=== PATIENT | male | born 1960 | race Caucasian/White ===

== ENCOUNTER 2016-07-30 01:39 | Emergency (ER) | payer MEDICAID, OTHER ==
[~2016-07-30] VITALS: Ht 177.8 cm; Wt 81.5 kg
[2016-07-30 01:50] VITALS: BP 120/81; PULSE 105; RESP 16; TEMP 98.8; O2SAT 97
[2016-07-30] MEDS ORDERED: FURO1TAB62 PO (02:16)
[2016-07-30] MEDS ORDERED: PANT20TA2 PO (02:16)
--- NOTE | 2016-07-30 02:35 | PD ---
HPI Chief Complaint: Injury Time Seen by Provider: 02:32 Travel History International Travel<30 days: No Contact w/Intl Traveler<30days: No Traveled to known affect area: No History of Present Illness HPI 55-year-old male presents to the emergency department for left wrist pain. According the patient he injured his wrist sustaining a fracture 06/24/16. Patient was seen in the emergency department as well as apartment patient is referred to orthopedist. Patient states that he cannot be seen by an orthopedist because no one will accept his insurance. In the interim he has lost his splint. Patient presents with an Aroldo wrap in place. No report of numbness tingling weakness or decreased range of motion of the digits. Pain with range of motion of the left wrist. No recent or recurrent injury. PFSH Past Medical History Narrative Medical Cirrhosis left wrist fracture tobacco use alcohol use nursing notes reviewed Cirrhosis: Yes Diminished Hearing: No Immunizations Current: Yes Tetanus Vaccination: < 5 Years Influenza Vaccination: No Past Surgical History Surgical History: No Previous Surgery Social History Alcohol Use: Yes (ALCOHOLIC STATES OCC USE) Tobacco Use: Yes (07/18 PPD) Substance Use: No Allergies-Medications (Allergen,Severity, Reaction): Coded Allergies: Bee Sting (Verified Allergy, Severe, Anaphylaxis, 07/30/16) Morphine (Verified Allergy, Mild, Nausea/Vomiting, 07/30/16) [place] (Verified Allergy, Mild, Headache, 07/30/16) Reported Meds & Prescriptions Reported Meds & Active Scripts Active Reported Pantoprazole (Pantoprazole Sodium) 20 Mg Tab 20 Mg PO DAILY Lasix (Furosemide) 20 Mg Tab Unknown Dose PO DAILY Review of Systems Except as stated in HPI: all other systems reviewed are Neg Physical Exam Narrative GENERAL: Well-developed well-nourished male in no acute distress no respiratory distress SKIN: Warm and dry. MUSCULOSKELETAL: No cyanosis, or edema. Data Data Last Documented VS Vital Signs Date Time Temp Pulse Resp B/P Pulse Ox O2 Delivery O2 Flow Rate FiO2 07/30/16 02:12 20 98 07/30/16 01:50 98.8 105 120/81 Orders Wrist, Complete ([id number]) (07/30/16 ) Splint Or Brace Apply/Monitor (07/30/16 02:59) MDM Medical Decision Making Medical Screen Exam Complete: Yes Emergency Medical Condition: Yes Medical Record Reviewed: Yes Differential Diagnosis Fractures sprain strain Narrative Course Imaging studies ordered Diagnosis Primary Impression: Distal radius fracture, left Qualified Code: S52.502D - Closed fracture of distal end of left radius with routine healing, unspecified fracture morphology, subsequent encounter Referrals: Orthopedist call for appointment Patient Instructions: General Instructions Additional Instructions: Wear splint Follow-up with orthopedist Return to the emergency department for any concerns Disposition: 01 DISCHARGE HOME Condition: Stable Loren Chacon MD Jul 30, 2016 02:35
[2016-07-30 04:14] VITALS: BP 118/68
--- NOTE | 2016-07-30 05:14 | RADHPO ---
EXAM DATE/TIME: 07/30/2016 02:39 [facility] COMPARISON: WRIST LEFT COMPLETE ([id number]), June 24, 2016, 22:44. INDICATIONS : Left wrist pain, recheck from last month MEDICAL HISTORY : SURGICAL HISTORY : None. ENCOUNTER: Subsequent ACUITY: 1 month PAIN SCORE: 6/10 LOCATION: Left wrist FINDINGS: A healing distal radial and radial styloid fracture is noted. The alignment is stable. No other fract ures are appreciated. CONCLUSION: Healing distal radial fracture Chiki Pappas MD on July 30, 2016 at 5:05 Board Certified Radiologist. This report was verified electronically.
== END 2016-07-30 04:19 | disposition home or self-care (01) ==
LOC: PHED 01:39
DX: S52.502D Unspecified fracture of the lower end of left radius, subsequent encounter for closed fracture with routine healing (principal); X58.XXXD Exposure to other specified factors, subsequent encounter; K74.60 Unspecified cirrhosis of liver; F10.10 Alcohol abuse, uncomplicated; F17.210 Nicotine dependence, cigarettes, uncomplicated
CPT/HCPCS: 29125; 73110

== ENCOUNTER 2016-09-07 19:01 | Inpatient (IN) | payer MEDICAID, OTHER ==
[~2016-09-07] VITALS: Ht 177.8 cm; Wt 83.0 kg
[~2016-09-07 19:01] MED LIST: FURO1TAB62 PO; PANT20TA2 PO
[2016-09-07 19:03] VITALS: BP 126/67; PULSE 116; RESP 20; TEMP 98; O2SAT 97
[2016-09-07] MEDS ORDERED: LACT10SO PO (21:05)
--- NOTE | 2016-09-07 21:12 | PD ---
HPI Chief Complaint: Alcohol/Drug Intoxication Time Seen by Provider: 21:11 Travel History International Travel<30 days: No Contact w/Intl Traveler<30days: No Traveled to known affect area: No History of Present Illness HPI 56-year-old male presents to the emergency department for psychiatric evaluation. Patient also states he believes he is going through alcohol withdrawals. Patient states he has been alcohol for several years, but relapsed 2 years ago. He states that he'll drink 2 large glasses of wine last night, but has not had any alcoholic beverages today. Patient states that he started drinking heavily when his . He does report a history of liver disease, splenic disease. He takes lactulose. He states that his plan would be to jump off the [place] shoot himself in the head. Patient states he smokes marijuana occasionally and uses tobacco occasionally. PFSH Past Medical History Cirrhosis: Yes Diminished Hearing: No Immunizations Current: Yes Social History Alcohol Use: Yes Tobacco Use: Yes Substance Use: No Allergies-Medications (Allergen,Severity, Reaction): Coded Allergies: Bee Sting (Verified Allergy, Severe, Anaphylaxis, 09/07/16) Morphine (Verified Allergy, Mild, Nausea/Vomiting, 09/07/16) [place] (Verified Allergy, Mild, Headache, 09/07/16) Reported Meds & Prescriptions Reported Meds & Active Scripts Active Reported Lactulose Liq (Lactulose) 10 Gm/15 Ml Soln 30 Ml PO Q6H PRN Pantoprazole (Pantoprazole Sodium) 20 Mg Tab 20 Mg PO DAILY Lasix (Furosemide) 20 Mg Tab Unknown Dose PO DAILY Review of Systems Except as stated in HPI: all other systems reviewed are Neg Physical Exam Narrative GENERAL: Well-developed well-nourished male patient SKIN: Warm and dry. HEAD: Normocephalic. Atraumatic. EYES: No scleral icterus. No injection or drainage. NECK: Supple, trachea midline. No JVD or lymphadenopathy. CARDIOVASCULAR: Regular rate and rhythm without murmurs, gallops, or rubs. RESPIRATORY: Breath sounds equal bilaterally. No accessory muscle use. Lungs sounds clear to auscultation. GASTROINTESTINAL: Abdomen soft, non-tender, nondistended. MUSCULOSKELETAL: No cyanosis, or edema. BACK: Nontender without obvious deformity. No CVA tenderness. Data Data Last Documented VS Vital Signs Date Time Temp Pulse Resp B/P Pulse Ox O2 Delivery O2 Flow Rate FiO2 09/07/16 19:03 98.0 116 20 126/67 97 Orders Complete Blood Count With Diff (09/07/16 21:10) Comprehensive Metabolic Panel (09/07/16 21:10) Psych Screen (09/07/16 21:10) Drug Screen, Random Urine (09/07/16 21:10) Alcohol (Ethanol) (09/07/16 21:10) Lorazepam Inj (Ativan Inj) (09/07/16 21:15) Diet Regular Basic (09/08/16 Breakfast) Alcohol Withdrawal Asmt-Ciwa ONCE (09/07/16 21:13) Ondansetron Inj (Zofran Inj) (09/07/16 21:15) Acetaminophen (Tylenol) (09/07/16 21:15) Flumazenil Inj (Romazicon Inj) (09/07/16 21:15) Lorazepam (Ativan) (09/07/16 21:15) Lorazepam Inj (Ativan Inj) (09/07/16 21:15) Lorazepam (Ativan) (09/07/16 21:15) Lorazepam Inj (Ativan Inj) (09/07/16 21:15) Lorazepam Inj (Ativan Inj) (09/07/16 21:15) Lorazepam Inj (Ativan Inj) (09/07/16 21:15) Calcium Gluconate Inj (Calcium Gluconate (09/07/16 22:30) Potassium Chloride (Kcl) (09/07/16 22:30) Electrocardiogram (09/07/16 ) Labs Laboratory Tests Test 09/07/16 21:16 Sodium Level 141 MEQ/L Potassium Level 3.0 MEQ/L Chloride Level 102 MEQ/L Carbon Dioxide Level 27.0 MEQ/L Anion Gap 12 MEQ/L Blood Urea Nitrogen 3 MG/DL Creatinine 0.63 MG/DL Estimat Glomerular Filtration 133 ML/MIN Rate Random Glucose 112 MG/DL Calcium Level 7.4 MG/DL Protein Corrected Calcium 7.4 MG/DL Total Bilirubin 4.2 MG/DL Aspartate Amino Transf 151 U/L (AST/SGOT) Alanine Aminotransferase 30 U/L (ALT/SGPT) Alkaline Phosphatase 159 U/L Total Protein 7.1 GM/DL Albumin 2.3 GM/DL Ethyl Alcohol Level 290 MG/DL MDM Medical Decision Making Medical Screen Exam Complete: Yes Emergency Medical Condition: Yes Differential Diagnosis Alcohol intoxication versus occult withdrawal versus depression versus anxiety versus suicidal ideation versus alcohol induced mood disorder Narrative Course 56-year-old male presents to the emergency department voluntarily for psychiatric evaluation stating he is suicidal. He stated he would jump off the bridge or shoot himself in the head with a gun. No tremors are noted. Patient is slightly tachycardic in triage. Patient is placed under Mathias act. CBC, CMP , UDS, alcohol level are ordered and pending. CMP shows hypokalemia at 3.0, hypocalcemia 7.4. Alcohol level is 290. EKG is ordered and shows sinus rhythm, heart rate 96, no acute ST changes.. Patient is given calcium gluconate 2 g IV, potassium 40 meq by mouth. CIWA protocol initiated. Dr. Lee will follow up in CBC results. Diagnosis Primary Impression: Suicidal ideation Additional Impressions: Alcohol abuse Depression Qualified Code: F32.9 - Depression, unspecified depression type Rosa Cuellar Sep 07, 2016 21:12 Patient is medically cleared for psychiatric screening and disposition. Condition: Stable Rosa Cuellar Sep 07, 2016 21:12
[2016-09-07] MEDS ORDERED: FLUMAZENIL 0.5 MG/5 ML VIAL IV PUSH PRN (21:15)
[2016-09-07] MEDS ORDERED: ACETAMINOPHEN 325 MG TAB PO PRN ×2 (21:15→23:30)
[2016-09-07] MEDS ORDERED: LORazepam 2 MG/ML VIAL IV PUSH ONE (21:15)
[2016-09-07] MEDS ORDERED: LORazepam 2 MG TAB PO PRN (21:15)
[2016-09-07] MEDS ORDERED: ONDANSETRON HCL 4 MG/2 ML VIAL IV PUSH PRN (21:15)
[2016-09-07] MEDS ORDERED: LORazepam 2 MG/ML VIAL IV PUSH PRN ×4 (21:15)
[2016-09-07 21:54] LABS: TOTAL BILIRUBIN ADULT 4.2 MG/DL (0.2-1.0)
[2016-09-07 21:56] LABS: CALCIUM-PROTEIN CORRECTED 7.4 MG/DL (8.5-10.1)
--- NOTE | 2016-09-07 22:24 | PD ---
Data Data Last Documented VS Vital Signs Date Time Temp Pulse Resp B/P Pulse Ox O2 Delivery O2 Flow Rate FiO2 09/07/16 19:03 98.0 116 20 126/67 97 Orders Complete Blood Count With Diff (09/07/16 21:10) Comprehensive Metabolic Panel (09/07/16 21:10) Psych Screen (09/07/16 21:10) Drug Screen, Random Urine (09/07/16 21:10) Alcohol (Ethanol) (09/07/16 21:10) Lorazepam Inj (Ativan Inj) (09/07/16 21:15) Diet Regular Basic (09/08/16 Breakfast) Alcohol Withdrawal Asmt-Ciwa ONCE (09/07/16 21:13) Ondansetron Inj (Zofran Inj) (09/07/16 21:15) Acetaminophen (Tylenol) (09/07/16 21:15) Flumazenil Inj (Romazicon Inj) (09/07/16 21:15) Lorazepam (Ativan) (09/07/16 21:15) Lorazepam Inj (Ativan Inj) (09/07/16 21:15) Lorazepam (Ativan) (09/07/16 21:15) Lorazepam Inj (Ativan Inj) (09/07/16 21:15) Lorazepam Inj (Ativan Inj) (09/07/16 21:15) Lorazepam Inj (Ativan Inj) (09/07/16 21:15) Calcium Gluconate Inj (Calcium Gluconate (09/07/16 22:30) Potassium Chloride (Kcl) (09/07/16 22:30) Electrocardiogram (09/07/16 ) Labs Laboratory Tests Test 09/07/16 21:16 Sodium Level 141 MEQ/L Potassium Level 3.0 MEQ/L Chloride Level 102 MEQ/L Carbon Dioxide Level 27.0 MEQ/L Anion Gap 12 MEQ/L Blood Urea Nitrogen 3 MG/DL Creatinine 0.63 MG/DL Estimat Glomerular Filtration 133 ML/MIN Rate Random Glucose 112 MG/DL Calcium Level 7.4 MG/DL Protein Corrected Calcium 7.4 MG/DL Total Bilirubin 4.2 MG/DL Aspartate Amino Transf 151 U/L (AST/SGOT) Alanine Aminotransferase 30 U/L (ALT/SGPT) Alkaline Phosphatase 159 U/L Total Protein 7.1 GM/DL Albumin 2.3 GM/DL Ethyl Alcohol Level 290 MG/DL MDM Supervised Visit with LIBORIO: Yes Narrative Course The history, exam, and medical decision-making in the associated mid-level provider note were completed with my assistance. I reviewed and agree with the findings presented. I attest that I had a [id number] encounter with the patient on the same day, and personally performed and documented my assessment and findings in the medical record. *My assessment and Findings: 56-year-old man, history of alcoholism, liver disease, depression, here with increased drinking and suicidal thoughts with a plan. Placed under Mathias act. Some withdrawal symptoms. Similar joint abnormalities. We'll replete calcium and potassium, psych eval. [facility] protocol. Justin Lee MD Sep 07, 2016 22:24
[2016-09-07] MEDS ORDERED: CALCIUM GLUCONATE INJ 2 GM in DEXTROSE 5% IN WATER 100ML INJ 100 ML IV ONE ×2 (22:30)
[2016-09-07] MEDS ORDERED: POTASSIUM CHLORIDE 20 MEQ CONTROLLED RELEASE TAB PO ONE (22:30)
[2016-09-07 22:47] LABS: AUTOMATED NEUTROPHIL # 2.8 TH/MM3 (1.8-7.7); BASOPHIL % 0.5 % (0.0-2.0); EOSINOPHIL % 0.7 % (0.0-4.0); HEMATOCRIT 22.7 % (39.0-51.0); LYMPH % 28.2 % (9.0-44.0); LYMPHOCYTE # 1.3 TH/MM3 (1.0-4.8); MEAN CELL VOLUME 76.4 FL (80.0-100.0); MEAN CORPUSCULAR HEMOGLOBIN 23.9 PG (27.0-34.0); MEAN CORPUSCULAR HGB CONC 31.2 % (32.0-36.0); MONO % 7.5 % (0.0-8.0); NEUT % 63.1 % (16.0-70.0); RED BLOOD COUNT 2.98 MIL/MM3 (4.50-5.90); WHITE BLOOD COUNT 4.5 TH/MM3 (4.0-11.0)
[2016-09-07 22:53] LABS: HEMO FLAGS AUTO DIFF
[2016-09-07 22:56] LABS: PLATELET COUNT 17 TH/MM3 (150-450)
[2016-09-07] MEDS ORDERED: SODIUM CHLORIDE 0.9% FLUSH 5 ML FLUSH IV FLUSH PRN (23:30)
[2016-09-07] MEDS ORDERED: SODIUM CHLORIDE 0.9% FLUSH 5 ML FLUSH FLUSH PRN (23:30)
[2016-09-07] MEDS ORDERED: BISACODYL 10 MG SUPP PR PRN (23:30)
[2016-09-07] MEDS ORDERED: ONDANSETRON HCL 4 MG/2 ML VIAL IVP PRN (23:30)
[2016-09-07 23:43] LABS: TARGET CELLS 2+ (NORMAL)
[2016-09-07 23:44] LABS: PLATELET ESTIMATE SMEAR LOW (NORMAL); SCAN/DIFF AUTO DIFF CONFIRMED; STOMATOCYTES 1+ (NORMAL)
[2016-09-08] MEDS: MULTIVITAMIN INJ 10 ML, FOLIC ACID INJ 1 MG in SODIUM CHLORID 0.9% 500 ML INJ 500 ML IV SCH ×2 (01:49→23:57)
[2016-09-08] MEDS: THIAMINE INJ 100 MG in SODIUM CHLORIDE 0.9% INJ 100 ML IV SCH ×2 (01:50→23:57)
--- NOTE | 2016-09-08 02:07 | HHI.HP ---
[facility] No Primary Care Physician Admission Diagnosis hypocalcemia, anemia, suicidality Diagnoses: (1) Hypokalemia Diagnosis: Principal (2) Hypocalcemia Diagnosis: Principal (3) Alcohol abuse Diagnosis: Principal (4) Thrombocytopenia Diagnosis: Principal (5) Anemia Diagnosis: Principal (6) Suicidal ideation Diagnosis: Principal Travel History International Travel<30 Days: No Contact w/Intl Traveler <30 Da: No Traveled to Known Affected Are: No History of Present Illness This is a 56-year-old male with PMH of Alcohol Abuse, Tobacco Abuse and Cirrhosis who presented to the ER secondary to suicidal ideation for voluntary psychiatric evaluation. Also concerned he is having alcohol withdrawal, however Alcohol 290. On arrival, BP 126/67, HR 116, O2 sat 97% on RA, Afebrile. Hgb 7.1. Platelets 17, no previous labs for comparison, no active bleeding. K+ 3.0. Ca 7.4. S/p replacement in ER. Review of Systems ROS: 14 point review of systems otherwise negative. Past Family Social History Past Medical History PMH: Alcohol Abuse, Tobacco Abuse and Cirrhosis Past Surgical History PAST SURGICAL HISTORY: None Allergies: Coded Allergies: Bee Sting (Verified Allergy, Severe, Anaphylaxis, 09/07/16) Morphine (Verified Allergy, Mild, Nausea/Vomiting, 09/07/16) [place] (Verified Allergy, Mild, Headache, 09/07/16) Family History PAST FAMILY HISTORY: Reviewed. No h/o DM or CAD Social History PAST SOCIAL HISTORY: Positive for Alcohol Abuse and Tobacco Abuse, occasional Marijuana. Physical Exam Vital Signs Vital Signs Date Time Temp Pulse Resp B/P Pulse Ox O2 Delivery O2 Flow Rate FiO2 09/07/16 19:03 98.0 116 20 126/67 97 Physical Exam PE: GENERAL: Middle-aged white male in no acute distress. HEENT: PERRLA, EOMI. No scleral icterus or conjunctival pallor. No lid lag or facial droop. CARDIOVASCULAR: Regular rate and rhythm. No obvious murmurs to auscultation. No chest tenderness to palpation. RESPIRATORY: No obvious rhonchi or wheezing. Clear to auscultation. Breath sounds equal bilaterally. GASTROINTESTINAL: Abdomen soft, non-tender, nondistended. BS normal. MUSCULOSKELETAL: Extremities without clubbing, cyanosis, or edema. No obvious deformities. NEUROLOGICAL: Awake, alert and oriented x4. No focal neurologic deficits. Moving both upper and lower extremities spontaneously. Laboratory Laboratory Tests Test 09/07/16 09/07/16 21:16 22:31 Sodium Level 141 Potassium Level 3.0 Chloride Level 102 Carbon Dioxide Level 27.0 Anion Gap 12 Blood Urea Nitrogen 3 Creatinine 0.63 Estimat Glomerular Filtration 133 Rate Random Glucose 112 Calcium Level 7.4 Protein Corrected Calcium 7.4 Total Bilirubin 4.2 Aspartate Amino Transf 151 (AST/SGOT) Alanine Aminotransferase 30 (ALT/SGPT) Alkaline Phosphatase 159 Total Protein 7.1 Albumin 2.3 Ethyl Alcohol Level 290 White Blood Count 4.5 Red Blood Count 2.98 Hemoglobin 7.1 Hematocrit 22.7 Mean Corpuscular Volume 76.4 Mean Corpuscular Hemoglobin 23.9 Mean Corpuscular Hemoglobin 31.2 Concent Red Cell Distribution Width 23.0 Platelet Count 17 Mean Platelet Volume 8.5 Neutrophils (%) (Auto) 63.1 Lymphocytes (%) (Auto) 28.2 Monocytes (%) (Auto) 7.5 Eosinophils (%) (Auto) 0.7 Basophils (%) (Auto) 0.5 Neutrophils # (Auto) 2.8 Lymphocytes # (Auto) 1.3 Monocytes # (Auto) 0.3 Eosinophils # (Auto) 0.0 Basophils # (Auto) 0.0 CBC Comment AUTO DIFF Differential Comment AUTO DIFF CONFIRMED Platelet Estimate LOW Target Cells 2+ Stomatocytes 1+ Result Diagram: 09/07/16223009/07/162115 Assessment and Plan Problem List: (1) Hypokalemia ICD Code: E87.6 Status: Acute (2) Hypocalcemia ICD Code: E83.51 Status: Acute (3) Alcohol abuse ICD Code: F10.10 Status: Acute (4) Thrombocytopenia ICD Code: D69.6 Status: Acute (5) Anemia ICD Code: D64.9 Status: Acute (6) Suicidal ideation ICD Code: R45.851 Status: Acute Assessment and Plan A/P: 1. Hypokalemia: K+ 3.0, s/p replacement in ER, will recheck and replace as needed. 2. Hypocalcemia: Ca 7.4, corrected 7.4, s/p replacement. Recheck labs in am, replace as needed. 3. Thrombocytopenia: Platelets 17, no previous labs for comparison, no active bleeding, likely chronic secondary to long-standing alcohol abuse. Will repeat labs in am to eval for stable counts. 4. Anemia: Hgb 7.1, no previous labs for comparison, no active bleeding as noted above. Type & Screen, repeat labs in am, transfuse as needed. 5. Alcohol Abuse: w/ Acute Alcohol Intoxication, Seizure Precautions, CIWA, MVT/Thiamine/Folate replacement. 6. Suicidal Ideation: Voluntary, however under Mathias Act. Pt owns gun and relayed plan to kill himself. Sitter. Consult Psych. 7. DVT Prophylaxis: SCD/Teds. 8. Social work for d/c planning as needed. 9. Case discussed w/ ER physician at length. Daxa Benoit MD Sep 08, 2016 02:07
[2016-09-08 02:32] VITALS: BP 134/81; PULSE 94; RESP 19; O2SAT 96
[2016-09-08] MEDS: LORazepam 1 MG TAB PO PRN ×3 (02:34→23:57)
[2016-09-08 07:22] LABS: ALT (GPT) 28 U/L (12-78); ANION GAP 10 MEQ/L (5-15); AST (GOT) 143 U/L (15-37); BICARBONATE 26.6 MEQ/L (21.0-32.0); BLOOD UREA NITROGEN 3 MG/DL (7-18); CHLORIDE 105 MEQ/L (98-107); GLOMERULAR FILTRATION RATE 138 ML/MIN (>89); POTASSIUM 3.1 MEQ/L (3.5-5.1); SODIUM (NA) 142 MEQ/L (136-145)
[2016-09-08 07:24] LABS: ALKALINE PHOSPHATASE 150 U/L (45-117); TOTAL BILIRUBIN ADULT 4.1 MG/DL (0.2-1.0)
[2016-09-08 07:55] LABS: AUTOMATED NEUTROPHIL # 1.6 TH/MM3 (1.8-7.7); BASOPHIL % 0.3 % (0.0-2.0); EOSINOPHIL % 1.5 % (0.0-4.0); HEMATOCRIT 23.2 % (39.0-51.0); LYMPH % 36.8 % (9.0-44.0); LYMPHOCYTE # 1.1 TH/MM3 (1.0-4.8); MEAN CELL VOLUME 76.8 FL (80.0-100.0); MEAN CORPUSCULAR HEMOGLOBIN 23.8 PG (27.0-34.0); MONO % 11.3 % (0.0-8.0); NEUT % 50.1 % (16.0-70.0); RED BLOOD COUNT 3.02 MIL/MM3 (4.50-5.90); RED CELL DISTRIBUTION WIDTH 23.1 % (11.6-17.2); WHITE BLOOD COUNT 3.1 TH/MM3 (4.0-11.0)
[2016-09-08 08:04] VITALS: BP 126/73; PULSE 97; RESP 20; TEMP 97.8; O2SAT 94
[2016-09-08 08:27] LABS: HEMO FLAGS AUTO DIFF; PLATELET COUNT 19 TH/MM3 (150-450)
[2016-09-08] MEDS ORDERED: POTASSIUM CHLOR 20 MEQ PREMIX 100 ML IV ONE (08:30)
[2016-09-08] MEDS ORDERED: POTASSIUM CHLORIDE 20 MEQ CONTROLLED RELEASE TAB PO ONE (08:30)
[2016-09-08] MEDS ORDERED: SODIUM CHLORIDE 0.9% FLUSH 5 ML FLUSH FLUSH SCH (09:00)
[2016-09-08] MEDS: SODIUM CHLORIDE 0.9% FLUSH 5 ML FLUSH IV FLUSH SCH ×2 (09:00→20:34)
[2016-09-08 12:44] LABS: PLATELET ESTIMATE SMEAR RARE (NORMAL); PLATELET MORPHOLOGY NORMAL (NORMAL); SCAN/DIFF AUTO DIFF CONFIRMED; TARGET CELLS 1+ (NORMAL)
[2016-09-08 12:45] VITALS: BP 118/75; PULSE 96; RESP 18; TEMP 98; O2SAT 94
--- NOTE | 2016-09-08 12:56 | PD.CONS ---
Provisional Diagnosis Admission Date Sep 07, 2016 at 23:27 [place] I. History of depression, alcohol-induced mood disorder, alcohol use disorder, marijuana use [place] II. Deferred [place] III. Liver cirrhosis, History of Present Illness Service Psychiatry Consult Requested By Primary Care Physician No Primary Care Physician HPI The patient is a 56-year-old man, domiciled with his mother in [place], disabled, , was negative history of depression, alcohol-induced mood disorder, alcohol use disorder, no previous psychiatric hospitalizations, no previous suicidal attempts, medical history of liver cirrhosis, who presents to the emergency department for involuntary psychiatric evaluation. Patient also states he believes he is going through alcohol withdrawals. Patient states he has been alcohol for several years, but relapsed 2 years ago. He states that he'll drink 2 large glasses of wine last night, but has not had any alcoholic beverages today. Patient states that he started drinking heavily when his . Initially today Alcohol 290. On arrival, BP 126/67, HR 116 , O2 sat 97% on RA, Afebrile. Hgb 7.1. Platelets 17, no previous labs for comparison, no active bleeding. K+ 3.0. Ca 7.4. Patient was seen for psychiatric evaluation in the ER, he was calm and cooperative, patient states that he has been drinking heavily for some years now. He was able to stop for about a year with the help of AA, but after his 2 years ago he is started to drink again and since then he hasn't been able to stop. Patient reports sad mood, especially in the last 2 weeks, he has been having low appetite, low energy, poor sleep, isolation, however he denies hopelessness, he denies helplessness, he denies anhedonia, he denies suicidal and homicidal ideation. Patient states that his depression is basically good to his continuous alcohol intake and his inability to control his dependence. He denies current anxiety, denies feliz, denies paranoia, denies delusions, denies visual and auditory hallucinations, patient is oriented 3. He reports daily use of alcohol "what ever a find, also marijuana", denies cocaine, heroine, PCP , any other illicit drug. Review of Systems Constitutional: DENIES: Diaphoretic episodes, Fatigue, Fever, Weight gain, Weight loss, Chills, Dizziness, Change in appetite, Night Sweats Eyes: DENIES: Blurred vision, Diplopia, Eye inflammation, Eye pain, Vision loss , Photosensitivity, Double Vision Ears, nose, mouth, throat: DENIES: Tinnitus, Hearing loss, Vertigo, Nasal discharge, Oral lesions, Throat pain, Hoarseness, Ear Pain, Running Nose, Epistaxis, Sinus Pain, Toothache, Odynophagia Respiratory: DENIES: Apneas, Cough, Snoring, Wheezing, Hemoptysis, Sputum production, Shortness of breath Cardiovascular: DENIES: Chest pain, Palpitations, Syncope, Dyspnea on Exertion , PND, Lower Extremity Edema, Orthopnea, Claudication Gastrointestinal: DENIES: Abdominal pain, Black stools, Bloody stools, Constipation, Diarrhea, Nausea, Vomiting, Difficulty Swallowing, Anorexia Musculoskeletal: DENIES: Joint pain, Muscle aches, Stiffness, Joint Swelling, Back pain, Neck pain Integumentary: DENIES: Abnormal pigmentation, Nail changes, Pruritus, Rash Hematologic/lymphatic: DENIES: Bruising, Lymphadenopathy Immunologic/allergic: DENIES: Eczema, Urticaria Neurologic: DENIES: Abnormal gait, Headache, Localized weakness, Paresthesias, Seizures, Speech Problems, Tremor, Poor Balance Psychiatric: COMPLAINS OF: Depression Past Family Social History Coded Allergies: Bee Sting (Verified Allergy, Severe, Anaphylaxis, 09/07/16) Morphine (Verified Allergy, Mild, Nausea/Vomiting, 09/07/16) [place] (Verified Allergy, Mild, Headache, 09/07/16) Reported Medications Lactulose Liq 10 Gm/15 Ml Soln30 Ml PO Q6H PRN (BLOATING) Ref 0 09/07/16 Pantoprazole 20 Mg Tab20 Mg PO DAILY #30 TAB Ref 0 07/30/16 Furosemide (Lasix)20 Mg TabUnknown Dose PO DAILY #30 TAB Ref 0 07/30/16 Current Medications Medications (Trade) Dose Ordered Sig/Jamila Route Start Time Stop Time Status Last Admin (Tylenol) 650 mg Q4H PRN PO 09/07/16 21:15 (Romazicon Inj) 0.2 mg Q1M PRN IV PUSH 09/07/16 21:15 (Ativan) 1 mg Q4H PRN PO 09/07/16 21:15 09/08/16 02:34 (Ativan Inj) 1 mg Q4H PRN IV PUSH 09/07/16 21:15 09/08/16 11:49 (Ativan) 2 mg Q2H PRN PO 09/07/16 21:15 (Ativan Inj) 2 mg Q2H PRN IV PUSH 09/07/16 21:15 (Ativan Inj) 2 mg Q1H PRN IV PUSH 09/07/16 21:15 (Ativan Inj) 2 mg Q15M PRN IV PUSH 09/07/16 21:15 (NS Flush) 2 ml UNSCH PRN IV FLUSH 09/07/16 23:30 IV Flush 2 ml 2 ml BID IV FLUSH 09/08/16 09:00 09/08/16 09:00 Multivitamins 10 ml/Folic Acid 1 mg/Sodium Chloride 510.2 ml @ 125 mls/hr Q24H IV 09/07/16 23:30 09/12/16 23:29 09/08/16 01:49 (Thiamine Inj/NS Inj) 101 ml @ 100 mls/hr Q24H IV 09/07/16 23:30 09/10/16 23:29 09/08/16 01:50 (Vitamin B1) 100 mg DAILY PO 09/11/16 09:00 (Zofran Inj) 4 mg Q6H PRN IVP 09/07/16 23:30 09/08/16 08:57 (Dulcolax Supp) 10 mg DAILY PRN [place] 09/07/16 23:30 (Tylenol) 650 mg Q6H PRN PO 09/07/16 23:30 (Roxicodone) 10 mg Q4H PRN PO 09/07/16 23:30 09/08/16 05:51 Oxycodone HCl 5 mg 5 mg Q4H PRN PO 09/07/16 23:30 (Magnesium Sulfate 1 Gm Premix) 100 ml @ 100 mls/hr Q1H IV 09/08/16 13:00 09/08/16 14:59 Family History Mother had depression and was an alcoholic Social History Patient was born and raised in [place], he has been living for the for 2 years, he is unemployed, supported by [employer], he is , his highest level of education is 12th grade Physical Exam Vital Signs Vital Signs Date Time Temp Pulse Resp B/P Pulse Ox O2 Delivery O2 Flow Rate FiO2 09/08/16 08:04 97.8 97 20 126/73 94 Mental Status Examination Appearance man, age-appropriate, [facility], good hygiene, is calm and cooperative Speech: Unremarkable Orientation: x3 Memory: Unremarkable Thought Process: Logical Thought Content: Unremarkable Hallucination Type: None Suicidal Ideation: No Previous Suicide Attempts: No Homicidal Ideation: No Previous Homicide Attempts: No Insight: Good Affect: Good Mood: Appropriate Motor Activity: Normal gait Assessment & Plan Problem List: (1) Alcohol abuse with alcohol-induced mood disorder Assessment & Plan: At the moment of the psychiatric evaluation patient reports symptomatology of depression consistent on poor appetite, poor sleep, decreased concentration level, low level of energy, for about the last 2 weeks in the context of continuous alcohol use. However patient denies suicidal or homicidal ideation he denies visual and auditory hallucinations. Patient seems to be insightful about his alcohol problem, with some motivation to go to detox/ rehabilitation. He does not meet criteria for psychiatric admission at this moment. He would really benefit of a detox/rehabilitation program, preferably inpatient. Extensive support, motivation psycho education provided. We will order trazodone 100 mg hs for depression and insomnia. No withdrawal symptoms observed or reported. Continue MARVINWA. Mathias act will be lifted. ICD Code: F10.14 Assessment & Plan Estimated LOS: Jesse Simpson MD Sep 08, 2016 12:56
[2016-09-08] MEDS: MAGNESIUM SULFATE 1 GM PREMIX 100 ML IV SCH ×2 (13:27→14:42)
--- NOTE | 2016-09-08 14:42 | EKG ---
Date Performed: 09/07/2016 Time Performed: 22:36:45 PTAGE: 56 years EKG: Sinus rhythm NONSPECIFIC T-WAVE ABNORMALITY BORDERLINE ECG NO PREVIOUS TRACING DOCTOR: Peter Tran Interpretating Date/Time 09/08/2016 14:39:52
--- NOTE | 2016-09-08 16:12 | RADRPT ---
EXAM DATE/TIME: 09/08/2016 15:07 [place] COMPARISON: No previous studies available for comparison. INDICATIONS : Increased lab values. MEDICAL HISTORY : Cirrhosis. Pancreatitis. Hypertension. Depression. Anxiety. SURGICAL HISTORY : Blood transfusions. ENCOUNTER: Initial ACUITY: 1 day PAIN SCORE: 0/10 LOCATION: Bilateral upper quadrant MEASUREMENTS: LIVER: 15.4 cm length COMMON DUCT: 6 mm RIGHT KIDNEY: 11.0 x 5.5 x 5.8 cm SPLEEN: 14.4 cm length FINDINGS: LIVER: No ductal dilatation. Simple cyst measures 18 x 17 x 19 mm. Large ascites. Cirrhotic liver. Hepatofug al flow. COMMON DUCT: No intraluminal mass or stone visualized. GALLBLADDER: Contains no stones, demonstrates no wall thickening or pericholecystic fluid. PANCREAS: The visualized portions are within normal limits. RIGHT KIDNEY: No hydronephrosis, stone or mass. SPLEEN: No focal lesion. Enlarged. Splenule noted. CONCLUSION: 1. Cirrhosis with abdominal ascites. 2. Simple hepatic cyst. 3. Splenomegaly. Mo Collins MD on September 08, 2016 at 16:10 Board Certified Radiologist. This report was verified electronically.
[2016-09-08 16:26] VITALS: BP 132/82; PULSE 100; RESP 19; TEMP 97.6
[2016-09-08] MEDS ORDERED: POTASSIUM CHLORIDE 10 MEQ CONTROLLED RELEASE TAB PO ONE (17:30)
--- NOTE | 2016-09-08 17:44 | HHI.PR ---
Subjective Remarks Follow up: ETOH withdraw, Hypokalemia, Hypocalcemia, Pancytopenia, Thrombocytopenia and Suicidal Ideation. Patient seen in room resting calmly with sitter at bedside. Patient denies SI/HI at this point. Patient reports he feel a little better. Denies SOB, chest pain, vomiting, diarrhea or constipation. hemoglobin 7.2 patient denies coffee ground emesis or hematochezia. Patient denies black tarry stools, but does report occasional bleeding from hemorrhoids. Patient has never had a colonoscopy, reports last EGD 1.5 years ago. Objective Vitals Vital Signs Date Time Temp Pulse Resp B/P Pulse Ox O2 Delivery O2 Flow Rate FiO2 09/08/16 16:26 97.6 100 19 132/82 09/08/16 12:45 98.0 96 18 118/75 94 09/08/16 08:04 97.8 97 20 126/73 94 09/08/16 02:32 94 19 134/81 96 09/07/16 19:03 98.0 116 20 126/67 97 I/O 09/07/16 09/07/16 09/07/16 09/08/16 09/08/16 09/08/16 07:00 15:00 23:00 07:00 15:00 23:00 Intake Total 840 ml Balance 840 ml Intake Oral 240 ml IV Total 600 ml # Voids 3 2 Result Diagram: 09/08/16 0604 09/08/16 0604 Imaging Last Impressions Liver Ultrasound 09/08/16 0000 Signed Impressions: Service Date/Time: Thursday, September 08, 2016 15:07 - CONCLUSION: 1. Cirrhosis with abdominal ascites. 2. Simple hepatic cyst. 3. Splenomegaly. Mo Collins MD Objective Remarks GENERAL: Middle-aged white male in no acute distress. HEENT: PERRLA, EOMI. No scleral icterus or conjunctival pallor. No lid lag or facial droop. CARDIOVASCULAR: Regular rate and rhythm. No obvious murmurs to auscultation. No chest tenderness to palpation. RESPIRATORY: No obvious rhonchi or wheezing. Clear to auscultation. Breath sounds equal bilaterally. GASTROINTESTINAL: Abdomen soft, non-tender, nondistended. BS normal. MUSCULOSKELETAL: Extremities without clubbing, cyanosis, or edema. No obvious deformities. NEUROLOGICAL: Awake, alert and oriented x4. No focal neurologic deficits. Moving both upper and lower extremities spontaneously. A/P Problem List: (1) Hypokalemia ICD Code: E87.6 Status: Resolved (2) Hypocalcemia ICD Code: E83.51 Status: Resolved (3) Alcohol abuse ICD Code: F10.10 Status: Chronic (4) Thrombocytopenia ICD Code: D69.6 Status: Acute (5) Anemia ICD Code: D64.9 Status: Acute (6) Suicidal ideation ICD Code: R45.851 Status: Acute Assessment and Plan 56 year old male patient with ETOH abuse history, electrolyte imbalance and pancytopenia Hypokalemia: potassium 3.1 replaced with potassium 40 meq PO, 30 meq PO and 20 meq IV mag 1.5 replaced with 2 gram IV recheck in AM Hypocalcemia: likely related to ETOH abuse Ca 7.6 will give additional calcium gluconate 1 gram IV recheck in AM Pancytopenia Thrombocytopenia: Platelets 17 -->19, no active bleeding, likely chronic secondary to long-standing alcohol abuse. Anemia: Hgb 7.1 --> 7.1, Type & Screen, repeat labs in am, transfuse as needed. Hemoccult stool pending GI consult- patient denies coffee ground emesis or hematochezia. Patient denies black tarry stools, but does report occasional bleeding from hemorrhoids. Patient has never had a colonoscopy, reports last EGD 1.5 years ago. Alcohol Abuse: w/ Acute Alcohol Intoxication, Seizure Precautions, CIWA, MVT/ Thiamine/Folate replacement. Elevated LFTs US liver reveals Cirrhosis with abdominal ascites, simple hepatic cyst and Splenomegaly Suicidal Ideation: Seen by psychiatry Mathias Act lifted. started on trazodone 100 mg QHS DVT Prophylaxis: SCD/Teds- avoid chemical DVT prophylaxis in light of thrombocytopenia Social work for d/c planning as needed. discussed with patient and nursing Written by Tameka Nicholas, acting as scribe for Dr. Nichols on 09/08/16 at 17:58. Attending Statement The documentation accurately reflects the work performed [id number] by me on at 17:58. Problem Qualifiers (1) Anemia: Tameka Nicholas Sep 08, 2016 17:44 Terry Perez MD Sep 13, 2016 22:49
[2016-09-08] MEDS ORDERED: CALCIUM GLUCONATE INJ 1 GM in DEXTROSE 5% IN WATER 100ML INJ 100 ML IV ONE ×2 (18:15)
[2016-09-08 20:00] VITALS: BP 136/69; PULSE 108; RESP 16; TEMP 97.4; O2SAT 94
[2016-09-08] MEDS: traZODone HCL 100 MG TAB PO SCH (20:34)
[2016-09-09] VITALS (13 sets, daily range): BP systolic 113–147; BP diastolic 66–90; PULSE 78–108; RESP 16–21; TEMP 96.3–99.7; O2SAT 93–100
[2016-09-09 06:37] LABS: ALT (GPT) 25 U/L (12-78); ANION GAP 8 MEQ/L (5-15); AST (GOT) 113 U/L (15-37); BICARBONATE 26.5 MEQ/L (21.0-32.0); BLOOD UREA NITROGEN 2 MG/DL (7-18); CHLORIDE 103 MEQ/L (98-107); GLOMERULAR FILTRATION RATE 143 ML/MIN (>89); MAGNESIUM 1.6 MG/DL (1.5-2.5); POTASSIUM 3.6 MEQ/L (3.5-5.1); SODIUM (NA) 137 MEQ/L (136-145)
[2016-09-09 06:50] LABS: ALKALINE PHOSPHATASE 131 U/L (45-117); TOTAL BILIRUBIN ADULT 6.3 MG/DL (0.2-1.0); TRANSFERRIN IRON PROFILE 194 MG/DL (200-360)
[2016-09-09 07:01] LABS: AUTOMATED NEUTROPHIL # 1.6 TH/MM3 (1.8-7.7); BASOPHIL % 0.8 % (0.0-2.0); EOSINOPHIL # 0.1 TH/MM3 (0-0.4); EOSINOPHIL % 2.1 % (0.0-4.0); LYMPH % 25.5 % (9.0-44.0); LYMPHOCYTE # 0.7 TH/MM3 (1.0-4.8); MEAN CELL VOLUME 77.6 FL (80.0-100.0); MEAN CORPUSCULAR HGB CONC 30.9 % (32.0-36.0); MONO % 11.8 % (0.0-8.0); NEUT % 59.8 % (16.0-70.0); RED BLOOD COUNT 2.74 MIL/MM3 (4.50-5.90); RED CELL DISTRIBUTION WIDTH 23.3 % (11.6-17.2); WHITE BLOOD COUNT 2.7 TH/MM3 (4.0-11.0)
[2016-09-09 07:40] LABS: HEMO FLAGS AUTO DIFF
[2016-09-09 07:44] LABS: HEMATOCRIT 21.2 % (39.0-51.0); PLATELET COUNT 16 TH/MM3 (150-450)
[2016-09-09] MEDS ORDERED: SODIUM CHLOR 0.9% 250 ML INJ 250 ML IV ONE (08:30)
[2016-09-09 10:58] LABS: OVALOCYTES 1+ (NORMAL); PLATELET ESTIMATE SMEAR RARE (NORMAL); PLATELET MORPHOLOGY NORMAL (NORMAL); ROULEAUX PRESENT (NORMAL); SCAN/DIFF AUTO DIFF CONFIRMED; TARGET CELLS 1+ (NORMAL)
[2016-09-09] MEDS: LORazepam 1 MG TAB PO PRN (11:12)
[2016-09-09] MEDS: SODIUM CHLORIDE 0.9% FLUSH 5 ML FLUSH IV FLUSH SCH ×2 (11:13→20:41)
--- NOTE | 2016-09-09 14:51 | HHI.PR ---
Subjective Remarks Patient denies hallucinations as per RN has required oral Ativan Stable vital signs denies cp/sob c/o mild tremors Hemoglobin dropped to 6.6 platelet dropped to 16 Objective Vitals Vital Signs Date Time Temp Pulse Resp B/P Pulse Ox O2 Delivery O2 Flow Rate FiO2 09/09/16 14:35 96.7 100 18 130/81 95 09/09/16 13:45 97.0 102 18 139/75 96 09/09/16 13:23 97.1 102 18 138/90 96 09/09/16 13:10 97.0 101 16 126/67 94 09/09/16 12:10 98.0 87 17 123/66 97 09/09/16 11:22 97.1 99 18 126/71 99 09/09/16 11:08 96.9 89 18 128/71 97 09/09/16 08:00 96.5 100 18 130/70 93 09/09/16 04:48 97.8 104 21 135/70 100 09/09/16 00:00 98.4 78 18 122/74 98 09/08/16 20:00 97.4 108 16 136/69 94 09/08/16 16:26 97.6 100 19 132/82 I/O 09/08/16 09/08/16 09/08/16 09/09/16 09/09/16 09/09/16 07:00 15:00 23:00 07:00 15:00 23:00 Intake Total 840 ml 240 ml 600 ml 780 ml Output Total 700 ml Balance 840 ml 240 ml 600 ml 80 ml Intake Oral 240 ml 240 ml 780 ml IV Total 600 ml 600 ml Output Urine Total 700 ml # Voids 3 2 1 3 6 # Bowel Movements 2 Result Diagram: 09/09/16 0548 09/09/16 0548 Imaging Last Impressions Liver Ultrasound 09/08/16 0000 Signed Impressions: Service Date/Time: Thursday, September 08, 2016 15:07 - CONCLUSION: 1. Cirrhosis with abdominal ascites. 2. Simple hepatic cyst. 3. Splenomegaly. Mo Collins MD Objective Remarks GENERAL: Middle-aged white male in no acute distress. HEENT: PERRLA, EOMI. No scleral icterus or conjunctival pallor. No lid lag or facial droop. CARDIOVASCULAR: Regular rate and rhythm. No obvious murmurs to auscultation. No chest tenderness to palpation. RESPIRATORY: No obvious rhonchi or wheezing. Clear to auscultation. Breath sounds equal bilaterally. GASTROINTESTINAL: Abdomen soft, non-tender, nondistended. BS normal. MUSCULOSKELETAL: Extremities without clubbing, cyanosis, or edema. No obvious deformities. NEUROLOGICAL: Awake, alert and oriented x4. No focal neurologic deficits. Moving both upper and lower extremities spontaneously. Mild tremors on upper extremities noted. Medications and IVs Current Medications Medications (Trade) Dose Ordered Sig/Jamila Route Start Time Stop Time Status Last Admin (Tylenol) 650 mg Q4H PRN PO 09/07/16 21:15 (Romazicon Inj) 0.2 mg Q1M PRN IV PUSH 09/07/16 21:15 (Ativan) 1 mg Q4H PRN PO 09/07/16 21:15 09/09/16 11:12 (Ativan Inj) 1 mg Q4H PRN IV PUSH 09/07/16 21:15 09/08/16 11:49 (Ativan) 2 mg Q2H PRN PO 09/07/16 21:15 (Ativan Inj) 2 mg Q2H PRN IV PUSH 09/07/16 21:15 (Ativan Inj) 2 mg Q1H PRN IV PUSH 09/07/16 21:15 (Ativan Inj) 2 mg Q15M PRN IV PUSH 09/07/16 21:15 (NS Flush) 2 ml UNSCH PRN IV FLUSH 09/07/16 23:30 IV Flush 2 ml 2 ml BID IV FLUSH 09/08/16 09:00 09/09/16 11:13 Multivitamins 10 ml/Folic Acid 1 mg/Sodium Chloride 510.2 ml @ 125 mls/hr Q24H IV 09/07/16 23:30 09/12/16 23:29 09/08/16 23:57 (Thiamine Inj/NS Inj) 101 ml @ 100 mls/hr Q24H IV 09/07/16 23:30 09/10/16 23:29 09/08/16 23:57 (Vitamin B1) 100 mg DAILY PO 09/11/16 09:00 (Zofran Inj) 4 mg Q6H PRN IVP 09/07/16 23:30 09/08/16 08:57 (Dulcolax Supp) 10 mg DAILY PRN AR 09/07/16 23:30 (Tylenol) 650 mg Q6H PRN PO 09/07/16 23:30 (Roxicodone) 10 mg Q4H PRN PO 09/07/16 23:30 09/08/16 05:51 (Roxicodone) 5 mg Q4H PRN PO 09/07/16 23:30 (Desyrel) 100 mg HS PO 09/08/16 21:00 09/08/16 20:34 A/P Problem List: (1) Hypokalemia ICD Code: E87.6 Status: Resolved (2) Hypocalcemia ICD Code: E83.51 Status: Resolved (3) Alcohol abuse ICD Code: F10.10 Status: Chronic (4) Thrombocytopenia ICD Code: D69.6 Status: Acute (5) Anemia ICD Code: D64.9 Status: Acute (6) Suicidal ideation ICD Code: R45.851 Status: Acute (7) Liver cirrhosis ICD Code: K74.60 Status: Acute Assessment and Plan 56 year old male patient with ETOH abuse history, electrolyte imbalance and pancytopenia Hypokalemia: potassium 3.1 replaced with potassium 40 meq PO, 30 meq PO and 20 meq IV mag 1.5 replaced with 2 gram IV 09/09 Resolved. continue to monitor and replace as needed. Hypocalcemia: likely related to ETOH abuse Ca 7.6 sp IV Calcium gluconate replacement Calcium level improving. Continue to monitor and replace as needed. Pancytopenia Thrombocytopenia: Platelets 17 -->19 -->16, no active bleeding, likely chronic secondary to long-standing alcohol abuse. Given down trend will transfuse 1 unit of platelets. Anemia: Hemoglobin dropping from 7.2-6.6. Transfuse 2 units of packed red blood cells and hemoglobin post transfusional. Transfuse for hemoglobin more than 7, or more than 9 if active bleeding. Hemoccult negative. GI consult- patient denies coffee ground emesis or hematochezia. Patient denies black tarry stools, but does report occasional bleeding from hemorrhoids. Patient has never had a colonoscopy, reports last EGD 1.5 years ago. Alcohol Abuse/alcohol withdrawal: Seizure Precautions, CIWA, MVT/Thiamine/ Folate replacement. Elevated LFTs US liver reveals Cirrhosis with abdominal ascites, simple hepatic cyst and Splenomegaly, follow-up gastroenterology recommendations. Suicidal Ideation: Seen by psychiatry Mathias Act lifted. started on trazodone 100 mg QHS DVT Prophylaxis: SCD/Teds- avoid chemical DVT prophylaxis in light of thrombocytopenia Social work for d/c planning as needed. Problem Qualifiers (1) Anemia: Terry Perez MD Sep 09, 2016 14:51
--- NOTE | 2016-09-09 17:57 | MB ---
cc: ALLYSON HOOKS M.D. DATE OF CONSULTATION 09/09/2016 DATE OF [address] Benoit REASON FOR REFERRAL Significant anemia. HISTORY OF THE PRESENT ILLNESS Thank you for the consultation. A 56-year-old male who is known to have alcohol abuse. The patient has multiple admissions because of anemia, cirrhosis. The patient came because of suicidal ideation. He said he was under a lot of stress and anxiety. He has been alcoholic for 2 years since his . He has multiple admissions in the past even though he still goes to and he had multiple episodes of rehab but he still drinks alcohol. He is worried that he is going to have alcohol withdrawal. The patient currently laying in bed comfortably. He denied GI bleed. No nausea or vomiting. Apparently he had similar episode multiple times. REVIEW OF SYSTEMS All 12-point negative except HPI. PAST MEDICAL HISTORY Significant for: 1. Cirrhosis. 2. Alcohol abuse. 3. Tobacco abuse. PAST SURGICAL HISTORY No surgeries. ALLERGIES MORPHINE, WALNUTS, BEE STING. FAMILY HISTORY Noncontributory and negative. PHYSICAL EXAMINATION GENERAL: Alert, oriented. In no acute distress at this time. VITAL SIGNS: Stable. HEENT: Pupils round and reactive to light. NECK: Supple. CHEST: Clear to auscultation and percussion. CARDIOVASCULAR: Regular rate and rhythm. ABDOMEN: Soft. Nondistended. Nontender. Positive bowel sounds. EXTREMITIES: No edema, clubbing or cyanosis. NEUROLOGICAL: Alert and oriented in no acute distress. PSYCHOLOGIC: Appropriate at this time. LABORATORY DATA Alcohol level on admission was 290. Liver function test today, his AST 113, ALT 25, total bilirubin 6.3. Creatinine 0.58. Albumin 2.1. White count 2.7, hemoglobin 6.6, platelets 16. His hemoglobin on admission was 7.1. IMAGING CT scan showed cirrhosis with ascites and simple hepatic cyst and splenomegaly. ASSESSMENT/PLAN A 56-year-old gentleman who has cirrhosis secondary to alcohol. The patient was scoped before and he had varices. He is still actively drinking, he drinks 6 beers a day and sometimes up to a pint of hard liquor. He said he failed rehab before. He does not think that he will be able to go to rehab again or quit alcohol. He had suicidal ideation because of anxiety on admission. I recommend packed rbc's. We will follow up. Most likely the pancytopenia is related to bone marrow suppression. If he starts actively bleeding he will need urgent endoscopy, if not he will need endoscopy and colonoscopy in few days when his platelet is stable. And he needs to stop alcohol completely and we will follow up with you. MD MING Lee/LYDIA /4:08 PM /5:45 PM
[2016-09-09 18:06] LABS: AUTOMATED NEUTROPHIL # 1.9 TH/MM3 (1.8-7.7); BASOPHIL % 0.5 % (0.0-2.0); EOSINOPHIL # 0.1 TH/MM3 (0-0.4); EOSINOPHIL % 1.8 % (0.0-4.0); HEMATOCRIT 25.2 % (39.0-51.0); LYMPH % 21.1 % (9.0-44.0); LYMPHOCYTE # 0.6 TH/MM3 (1.0-4.8); MEAN CELL VOLUME 78.2 FL (80.0-100.0); MEAN CORPUSCULAR HEMOGLOBIN 24.1 PG (27.0-34.0); MEAN CORPUSCULAR HGB CONC 30.8 % (32.0-36.0); NEUT % 65.6 % (16.0-70.0); PLATELET COUNT 33 TH/MM3 (150-450); RED BLOOD COUNT 3.23 MIL/MM3 (4.50-5.90); RED CELL DISTRIBUTION WIDTH 21.7 % (11.6-17.2); WHITE BLOOD COUNT 2.8 TH/MM3 (4.0-11.0)
[2016-09-09 18:08] LABS: HEMO FLAGS AUTO DIFF
[2016-09-09 18:54] LABS: PLATELET ESTIMATE SMEAR LOW (NORMAL); PLATELET MORPHOLOGY NORMAL (NORMAL); SCAN/DIFF AUTO DIFF CONFIRMED; TARGET CELLS 1+ (NORMAL)
[2016-09-09] MEDS: traZODone HCL 100 MG TAB PO SCH ×2 (20:41→21:53)
[2016-09-10] VITALS (7 sets, daily range): BP systolic 101–140; BP diastolic 66–81; PULSE 81–100; RESP 16–18; TEMP 97.1–99.4; O2SAT 94–98
[2016-09-10] MEDS: MULTIVITAMIN INJ 10 ML, FOLIC ACID INJ 1 MG in SODIUM CHLORID 0.9% 500 ML INJ 500 ML IV SCH ×2 (00:24→23:30)
[2016-09-10] MEDS: THIAMINE INJ 100 MG in SODIUM CHLORIDE 0.9% INJ 100 ML IV SCH (00:24)
[2016-09-10 07:46] LABS: AUTOMATED NEUTROPHIL # 1.5 TH/MM3 (1.8-7.7); BASOPHIL % 0.4 % (0.0-2.0); EOSINOPHIL # 0.1 TH/MM3 (0-0.4); EOSINOPHIL % 3.4 % (0.0-4.0); HEMATOCRIT 23.6 % (39.0-51.0); LYMPH % 20.6 % (9.0-44.0); LYMPHOCYTE # 0.5 TH/MM3 (1.0-4.8); MEAN CELL VOLUME 77.7 FL (80.0-100.0); MEAN CORPUSCULAR HEMOGLOBIN 24.5 PG (27.0-34.0); MEAN CORPUSCULAR HGB CONC 31.5 % (32.0-36.0); MONO % 13.6 % (0.0-8.0); PLATELET COUNT 26 TH/MM3 (150-450); RED BLOOD COUNT 3.04 MIL/MM3 (4.50-5.90); RED CELL DISTRIBUTION WIDTH 21.4 % (11.6-17.2); WHITE BLOOD COUNT 2.5 TH/MM3 (4.0-11.0)
[2016-09-10 07:48] LABS: HEMO FLAGS AUTO DIFF
[2016-09-10 08:12] LABS: ALT (GPT) 23 U/L (12-78); ANION GAP 9 MEQ/L (5-15); AST (GOT) 91 U/L (15-37); BICARBONATE 26.4 MEQ/L (21.0-32.0); BLOOD UREA NITROGEN 5 MG/DL (7-18); CHLORIDE 103 MEQ/L (98-107); GLOMERULAR FILTRATION RATE 130 ML/MIN (>89); POTASSIUM 3.2 MEQ/L (3.5-5.1); SODIUM (NA) 138 MEQ/L (136-145)
[2016-09-10 08:14] LABS: ALKALINE PHOSPHATASE 122 U/L (45-117); TOTAL BILIRUBIN ADULT 6.7 MG/DL (0.2-1.0)
[2016-09-10] MEDS: SODIUM CHLORIDE 0.9% FLUSH 5 ML FLUSH IV FLUSH SCH ×2 (08:34→21:43)
[2016-09-10 09:19] LABS: TARGET CELLS 1+ (NORMAL)
[2016-09-10 09:20] LABS: OVALOCYTES 1+ (NORMAL); PLATELET ESTIMATE SMEAR LOW (NORMAL); PLATELET MORPHOLOGY NORMAL (NORMAL); SCAN/DIFF AUTO DIFF CONFIRMED
[2016-09-10] MEDS ORDERED: MAGNESIUM SULFATE 1 GM PREMIX 100 ML IV ONE (10:00)
[2016-09-10] MEDS ORDERED: POTASSIUM CHLORIDE 10 MEQ CONTROLLED RELEASE TAB PO ONE (10:00)
--- NOTE | 2016-09-10 11:30 | HHI.GIFU ---
Subjective Remarks Resting in bed. No obvious bleeding. No n/v, abdominal pain. Tolerating diet. (Mela Sandoval) Objective Vitals I&O Vital Signs Date Time Temp Pulse Resp B/P Pulse Ox O2 Delivery O2 Flow Rate FiO2 09/10/16 08:00 97.1 91 16 119/71 94 09/10/16 04:13 99.4 100 18 140/78 94 09/09/16 21:33 99.7 108 18 147/84 93 09/09/16 19:53 97.6 99 16 113/66 95 09/09/16 16:00 96.3 104 18 143/77 97 09/09/16 14:35 96.7 100 18 130/81 95 09/09/16 13:45 97.0 102 18 139/75 96 09/09/16 13:23 97.1 102 18 138/90 96 09/09/16 13:10 97.0 101 16 126/67 94 09/09/16 12:10 98.0 87 17 123/66 97 I/O 09/09/16 09/09/16 09/09/16 09/10/16 09/10/16 09/10/16 07:00 15:00 23:00 07:00 15:00 23:00 Intake Total 600 ml 780 ml 240 ml 240 ml Output Total 700 ml Balance 600 ml 80 ml 240 ml 240 ml Intake Oral 780 ml 240 ml 240 ml IV Total 600 ml Output Urine Total 700 ml # Voids 3 6 1 2 # Bowel Movements 2 Laboratory Laboratory Tests Test 09/09/16 09/10/16 17:41 07:13 White Blood Count 2.8 2.5 Red Blood Count 3.23 3.04 Hemoglobin 7.8 7.4 Hematocrit 25.2 23.6 Mean Corpuscular Volume 78.2 77.7 Mean Corpuscular Hemoglobin 24.1 24.5 Mean Corpuscular Hemoglobin 30.8 31.5 Concent Red Cell Distribution Width 21.7 21.4 Platelet Count 33 26 Mean Platelet Volume 8.9 8.9 Neutrophils (%) (Auto) 65.6 62.0 Lymphocytes (%) (Auto) 21.1 20.6 Monocytes (%) (Auto) 11.0 13.6 Eosinophils (%) (Auto) 1.8 3.4 Basophils (%) (Auto) 0.5 0.4 Neutrophils # (Auto) 1.9 1.5 Lymphocytes # (Auto) 0.6 0.5 Monocytes # (Auto) 0.3 0.3 Eosinophils # (Auto) 0.1 0.1 Basophils # (Auto) 0.0 0.0 CBC Comment AUTO DIFF AUTO DIFF Differential Comment AUTO DIFF AUTO DIFF CONFIRMED CONFIRMED Platelet Estimate LOW LOW Platelet Morphology Comment NORMAL NORMAL Target Cells 1+ 1+ Ovalocytes 1+ Sodium Level 138 Potassium Level 3.2 Chloride Level 103 Carbon Dioxide Level 26.4 Anion Gap 9 Blood Urea Nitrogen 5 Creatinine 0.64 Estimat Glomerular Filtration 130 Rate Random Glucose 94 Calcium Level 7.9 Total Bilirubin 6.7 Aspartate Amino Transf 91 (AST/SGOT) Alanine Aminotransferase 23 (ALT/SGPT) Alkaline Phosphatase 122 Total Protein 6.3 Albumin 2.2 Date/Time Procedure Status Source Growth 09/09/16 14:28 Stool Occult Blood ([facility]IA) - Final Complete Stool Stool HEMOCCULT NEGATIVE Imaging Last Impressions Liver Ultrasound 09/08/16 0000 Signed Impressions: Service Date/Time: Saturday, September 08, 2016 15:07 - CONCLUSION: 1. Cirrhosis with abdominal ascites. 2. Simple hepatic cyst. 3. Splenomegaly. Mo Collins MD Physical Exam HEENT: Normocephalic; atraumatic; no jaundice. CHEST: CTA CARDIAC: RRR ABDOMEN: Soft, nondistended, nontender; hepatosplenomegaly; bowel sounds are present in all four quadrants. EXTREMITIES: No clubbing, cyanosis, or edema. SKIN: Normal; no rash; no jaundice. WEB SYSTEMS DEVELOPER: No focal deficits; alert and oriented times three. (Mela SandovalP) Assessment and Plan Plan ASSESSMENT: - Anemia, S/P 1 unit PRBC. 7.4/23.6. Plan for EGD/Colonoscopy once thrombocytopenia improves. - Pancytopenia. WBC 2.5, 7.4/23.6, Plt 26. S/P 1 platelet pack. - Liver cirrhosis. Liver Ultrasound (09/08/16)----> 1. Cirrhosis with abdominal ascites. 2. Simple hepatic cyst. 3. Splenomegaly. Recently started drinking again over the past several months. T. Bili 6.7, AST 91, ALT 23, Alk phosph 122- Consistent with alcoholic hepatitis. No coag's drawn. Will get PT/INR and then calculate DF. D/W patient importance of complete ETOH cessation. PLAN: - Change diet to low sodium diet - Add PPI - PT/INR - CBC, CMP, PT/INR in am - Will plan for egd/colonoscopy once thrombocytopenia improves - If evidence of active bleeding, will need to give platelets and schedule EGD/ Colonoscopy. Otherwise, we will wait for platelets to improves - Supportive care - Further recommendations to follow based on results of above - Pt seen and examined by Dr. Becker and myself and this note is written on his behalf (Mela Sandoval) Physician Comments Patient seen and examined Agree with above Continue with current supportive care Monitor labs (Onesimo Becker MD) Mela Sandoval Sep 10, 2016 11:30 Onesimo Becker MD Sep 11, 2016 00:16
[2016-09-10] MEDS: IRON DEXTRAN 100 MG/2 ML VIAL IM SCH (12:01)
[2016-09-10] MEDS: PANTOPRAZOLE SOD 40 MG DELAYED RELEASE TAB PO SCH (12:01)
[2016-09-10 13:37] LABS: INTERNATIONAL NORMALIZED RATIO 2.2 RATIO; PROTHROMBIN TIME - PATIENT 24.8 SEC (9.8-11.6)
[2016-09-10] MEDS ORDERED: ACETAMINOPHEN 325 MG TAB PO PRN (15:45)
[2016-09-10] MEDS ORDERED: SODIUM CHLOR 0.9% 250 ML INJ 250 ML IV ONE (15:45)
[2016-09-10] MEDS ORDERED: diphenhydrAMINE HCL 25 MG CAP PO PRN (15:45)
--- NOTE | 2016-09-10 15:47 | HHI.PR ---
Subjective Remarks States tremors are still present but improved. Tachycardia improving. Denies chest pain or shortness of breath Potassium low Objective Vitals Vital Signs Date Time Temp Pulse Resp B/P Pulse Ox O2 Delivery O2 Flow Rate FiO2 09/10/16 12:00 97.3 95 16 119/70 96 09/10/16 08:00 97.1 91 16 119/71 94 09/10/16 04:13 99.4 100 18 140/78 94 09/09/16 21:33 99.7 108 18 147/84 93 09/09/16 19:53 97.6 99 16 113/66 95 09/09/16 16:00 96.3 104 18 143/77 97 I/O 09/09/16 09/09/16 09/09/16 09/10/16 09/10/16 09/10/16 07:00 15:00 23:00 07:00 15:00 23:00 Intake Total 600 ml 780 ml 240 ml 240 ml Output Total 700 ml Balance 600 ml 80 ml 240 ml 240 ml Intake Oral 780 ml 240 ml 240 ml IV Total 600 ml Output Urine Total 700 ml # Voids 3 6 1 2 # Bowel Movements 2 Result Diagram: 09/10/1613 09/10/16 0713 Imaging Last Impressions Liver Ultrasound 09/08/16 0000 Signed Impressions: Service Date/Time: Thursday, September 08, 2016 15:07 - CONCLUSION: 1. Cirrhosis with abdominal ascites. 2. Simple hepatic cyst. 3. Splenomegaly. Mo Collins MD Objective Remarks GENERAL: Middle-aged white male in no acute distress. HEENT: PERRLA, EOMI. No scleral icterus or conjunctival pallor. No lid lag or facial droop. CARDIOVASCULAR: Regular rate and rhythm. No obvious murmurs to auscultation. No chest tenderness to palpation. RESPIRATORY: No obvious rhonchi or wheezing. Clear to auscultation. Breath sounds equal bilaterally. GASTROINTESTINAL: Abdomen soft, non-tender, nondistended. BS normal. MUSCULOSKELETAL: Extremities without clubbing, cyanosis, or edema. No obvious deformities. NEUROLOGICAL: Awake, alert and oriented x4. No focal neurologic deficits. Moving both upper and lower extremities spontaneously. Mild tremors on upper extremities noted. Medications and IVs Current Medications Medications (Trade) Dose Ordered Sig/Jamila Route Start Time Stop Time Status Last Admin (Tylenol) 650 mg Q4H PRN PO 09/07/16 21:15 (Romazicon Inj) 0.2 mg Q1M PRN IV PUSH 09/07/16 21:15 (Ativan) 1 mg Q4H PRN PO 09/07/16 21:15 09/09/16 11:12 (Ativan Inj) 1 mg Q4H PRN IV PUSH 09/07/16 21:15 09/08/16 11:49 (Ativan) 2 mg Q2H PRN PO 09/07/16 21:15 (Ativan Inj) 2 mg Q2H PRN IV PUSH 09/07/16 21:15 (Ativan Inj) 2 mg Q1H PRN IV PUSH 09/07/16 21:15 (Ativan Inj) 2 mg Q15M PRN IV PUSH 09/07/16 21:15 (NS Flush) 2 ml UNSCH PRN IV FLUSH 09/07/16 23:30 09/10/16 00:27 IV Flush 2 ml 2 ml BID IV FLUSH 09/08/16 09:00 09/10/16 08:34 Multivitamins 10 ml/Folic Acid 1 mg/Sodium Chloride 510.2 ml @ 125 mls/hr Q24H IV 09/07/16 23:30 09/12/16 23:29 09/10/16 00:24 (Thiamine Inj/NS Inj) 101 ml @ 100 mls/hr Q24H IV 09/07/16 23:30 09/10/16 23:29 09/10/16 00:24 (Vitamin B1) 100 mg DAILY PO 09/11/16 09:00 (Zofran Inj) 4 mg Q6H PRN IVP 09/07/16 23:30 09/08/16 08:57 (Dulcolax Supp) 10 mg DAILY PRN NC 09/07/16 23:30 (Tylenol) 650 mg Q6H PRN PO 09/07/16 23:30 09/09/16 21:54 (Roxicodone) 10 mg Q4H PRN PO 09/07/16 23:30 09/10/16 05:34 (Roxicodone) 5 mg Q4H PRN PO 09/07/16 23:30 (Desyrel) 100 mg HS PO 09/08/16 21:00 09/09/16 21:53 (Infed Inj) 100 mg DAILY IM 09/10/16 10:00 09/10/16 12:01 (Protonix) 40 mg DAILY PO 09/10/16 12:00 09/10/16 12:01 A/P Problem List: (1) Hypokalemia ICD Code: E87.6 Status: Resolved (2) Hypocalcemia ICD Code: E83.51 Status: Resolved (3) Alcohol abuse ICD Code: F10.10 Status: Chronic (4) Thrombocytopenia ICD Code: D69.6 Status: Acute (5) Anemia ICD Code: D64.9 Status: Acute (6) Suicidal ideation ICD Code: R45.851 Status: Acute (7) Liver cirrhosis ICD Code: K74.60 Status: Acute Assessment and Plan 56 year old male patient with ETOH abuse history, electrolyte imbalance and pancytopenia Hypokalemia: potassium 3.1 replaced with potassium 40 meq PO, 30 meq PO and 20 meq IV mag 1.5 replaced with 2 gram IV 09/09 Resolved. continue to monitor and replace as needed. Hypocalcemia: likely related to ETOH abuse Ca 7.6 sp IV Calcium gluconate replacement Calcium level improving. Continue to monitor and replace as needed. 09/10 K Ca 7.9 - Continue to monitor and replace as needed. Pancytopenia Thrombocytopenia: Platelets 17 -->19 -->16, no active bleeding, likely chronic secondary to long-standing alcohol abuse. Given down trend will transfuse 1 unit of platelets. 09/10 Platelets today up to 26 but still trending down. Consult hematology. Anemia: Hemoglobin dropping from 7.2-6.6. Patient sp transfusion of 2 units of PRBC on 09/09/16. Hemoccult negative. GI consulted. Appreciate recommendations. Patient will need EGD and colonoscopy once platelets and hemoglobin stable. Will transfuse 1 unit of PRBC's to a goal hemoglobin more than 8. Alcohol Abuse/alcohol withdrawal: Seizure Precautions, CIWA, MVT/Thiamine/ Folate replacement. Elevated LFTs US liver reveals Cirrhosis with abdominal ascites, simple hepatic cyst and Splenomegaly, follow-up gastroenterology recommendations. Suicidal Ideation: Seen by psychiatry Mathias Act lifted. started on trazodone 100 mg QHS DVT Prophylaxis: SCD/Teds- avoid chemical DVT prophylaxis in light of thrombocytopenia Social work for d/c planning as needed. Discharge Planning Continue to monitor in the medical floor. Problem Qualifiers (1) Anemia: Terry Perez MD Sep 10, 2016 15:47
[2016-09-10 17:35] LABS: HEMOGLOBIN A1a 0.7 %; HEMOGLOBIN A1b 0.8 %; HEMOGLOBIN Ao 90.2 %; HEMOGLOBIN LA1C 1.3 %; HEMOGLOBIN P3 2.5 %
[2016-09-10] MEDS: traZODone HCL 100 MG TAB PO SCH (21:43)
[2016-09-11] VITALS (9 sets, daily range): BP systolic 102–117; BP diastolic 59–75; PULSE 76–90; RESP 10–20; TEMP 96.5–98.5; O2SAT 92–97
--- NOTE | 2016-09-11 07:44 | MB ---
cc: JOSEFA MARIE M.D. DATE OF CONSULTATION 09/10/2016 REASON FOR CONSULTATION Consult requested by [facility] hospitalist for evaluation of pancytopenia. HISTORY OF PRESENT ILLNESS Cayetano is a 56-year-old male. He used to live in [place]. Recently he moved to this area about six months ago. He has a history of alcoholism. He also has a history of cirrhosis of the liver. The patient came to the emergency room after he had suicidal ideation and he wanted voluntary admission to the hospital. He had blood tests on admission and his a serum alcohol level was found to be elevated at 290. CBC showed white count of 4.5, hemoglobin 7.1, hematocrit 17. His hemoglobin dropped to 6.6 yesterday. CBC today showed white count of 2.5, hemoglobin 7.4, hematocrit 23.6, platelets 26. Because of the pancytopenia I have been asked to see him for further evaluation. REVIEW OF SYSTEMS The patient denies any blood in the stool. Stools are heme-negative. GI has been consulted. The patient is receiving blood transfusion. He also had received platelet transfusion. The patient is complaining of weakness, tiredness, fatigue. Denies any bleeding episodes. He is a poor historian. He has a friend who was present at the bedside. The rest of the review of systems is negative. PAST MEDICAL HISTORY Alcoholism. Cirrhosis of the liver. PAST SURGICAL HISTORY None. ALLERGIES MORPHINE. MEDICATIONS None prior to going to the hospital. FAMILY HISTORY Noncontributory. SOCIAL HISTORY The patient smokes cigarettes and drinks alcohol heavily. PHYSICAL EXAMINATION GENERAL: This is a well-developed, well-nourished white male in no apparent distress. VITAL SIGNS: Temperature 98.2, heart is 94, blood pressure 114/81, O2 saturation 94%. HEENT: PERRLA, EOMI. Sclerae is deeply icteric. No oral lesions noted. NECK: No lymphadenopathy noted. LUNGS: Clear. No wheezing, rhonchi or rales. HEART: Regular rate and rhythm. ABDOMEN: Soft, nontender. No hepatosplenomegaly. EXTREMITIES: No pedal edema. NEUROLOGY: Awake, alert, oriented x 3. SKIN: No significant lesions are noted. ABDOMEN: Soft. The spleen is palpable. EXTREMITIES: No pedal edema. NEUROLOGY: Awake, alert, oriented x 3. SKIN: No significant lesions are noted. ASSESSMENT 1. 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 2. Microcytic hypochromic anemia due to iron deficiency from intermittent GI Bleeding. 3. Alcoholism. PLAN I have reviewed his available records and I have discussed with the patient and his friend regarding the pancytopenia. The patient states that he is known to have pancytopenia and he knows that he has cirrhosis of the liver which is causing that. He used to see a physician in [place] where he used to live by. Now he has moved down here about 6 months ago. He understands that his problem is addiction to alcohol. However, he is trying to quit but he is unable to do that. His friend mentioned that he continues to drink alcohol heavily. The patient is getting blood transfusion. He also had received platelet transfusion but he is not bleeding and I would not give any further platelet transfusion. I expect his blood count to improve once the effect of the alcohol wears off. His serum ferritin is low at 26; this is consistent with iron deficiency. The patient will benefit from oral iron therapy. I will start oral iron TID. I will check the B12 and folate to evaluate for any nutritional deficiency as a cause of pancytopenia which I doubt. The patient had ultrasound of the liver which shows cirrhosis and splenomegaly. GI is also on the case and they have elected for observation. Thank you for asking my opinion. MD CHERY Mccullough/FABIO /8:25 PM /7:35 AM RAFI
[2016-09-11 07:59] LABS: AUTOMATED NEUTROPHIL # 1.2 TH/MM3 (1.8-7.7); BASOPHIL % 0.7 % (0.0-2.0); EOSINOPHIL # 0.1 TH/MM3 (0-0.4); EOSINOPHIL % 4.6 % (0.0-4.0); HEMATOCRIT 26.1 % (39.0-51.0); LYMPHOCYTE # 0.8 TH/MM3 (1.0-4.8); MEAN CELL VOLUME 78.4 FL (80.0-100.0); MEAN CORPUSCULAR HEMOGLOBIN 25.1 PG (27.0-34.0); MONO % 15.6 % (0.0-8.0); NEUT % 48.1 % (16.0-70.0); PLATELET COUNT 28 TH/MM3 (150-450); RED BLOOD COUNT 3.33 MIL/MM3 (4.50-5.90); RED CELL DISTRIBUTION WIDTH 21.1 % (11.6-17.2); WHITE BLOOD COUNT 2.5 TH/MM3 (4.0-11.0)
[2016-09-11 08:03] LABS: INTERNATIONAL NORMALIZED RATIO 2.4 RATIO; PROTHROMBIN TIME - PATIENT 27.5 SEC (9.8-11.6)
[2016-09-11 08:05] LABS: HEMO FLAGS AUTO DIFF
--- NOTE | 2016-09-11 08:43 | PD.ONC.PN ---
Subjective Subjective Remarks Afebrile overnight. Patient resting comfortably. He is tolerating iron pills. Objective Data Date Time Temp Pulse Resp B/P Pulse Ox O2 Delivery O2 Flow Rate FiO2 09/11/16 08:00 98.1 88 20 112/68 97 09/11/16 04:00 98.5 88 18 108/64 96 09/11/16 00:45 98.5 90 18 103/64 96 09/10/16 20:00 98.7 94 18 101/66 95 09/10/16 18:12 98.2 94 16 114/81 94 09/10/16 17:44 98.1 81 16 108/70 98 09/10/16 16:00 98.0 94 17 108/68 96 09/10/16 12:00 97.3 95 16 119/70 96 09/11/16 09/11/16 09/11/16 07:00 15:00 23:00 Intake Total 360 ml Balance 360 ml Result Diagram: 09/11/16 0700 09/10/16 0713 Laboratory Results Laboratory Tests Test 09/10/16 09/10/16 09/11/16 13:08 15:39 07:00 Prothrombin Time 24.8 SEC 27.5 SEC Prothromb Time International 2.2 RATIO 2.4 RATIO Ratio Blood Type AB NEGATIVE Crossmatch Leukocyte-Reduced Red Blood Cells Blood Bank Comment White Blood Count 2.5 TH/MM3 Red Blood Count 3.33 MIL/MM3 Hemoglobin 8.4 GM/DL Hematocrit 26.1 % Mean Corpuscular Volume 78.4 FL Mean Corpuscular Hemoglobin 25.1 PG Mean Corpuscular Hemoglobin 32.0 % Concent Red Cell Distribution Width 21.1 % Platelet Count 28 TH/MM3 Mean Platelet Volume 8.7 FL Neutrophils (%) (Auto) 48.1 % Lymphocytes (%) (Auto) 31.0 % Monocytes (%) (Auto) 15.6 % Eosinophils (%) (Auto) 4.6 % Basophils (%) (Auto) 0.7 % Neutrophils # (Auto) 1.2 TH/MM3 Lymphocytes # (Auto) 0.8 TH/MM3 Monocytes # (Auto) 0.4 TH/MM3 Eosinophils # (Auto) 0.1 TH/MM3 Basophils # (Auto) 0.0 TH/MM3 CBC Comment AUTO DIFF Culture Results Microbiology Date/Time Procedure Status Source Growth 09/09/16 14:28 Stool Occult Blood (LIDIA) - Final Complete Stool Stool HEMOCCULT NEGATIVE Administered Medications Medications (Trade) Dose Ordered Sig/Jamila Route PRN Reason Start Time Stop Time Status Last Admin Dose Admin Lorazepam (Ativan) 1 mg Q4H PRN PO CIWA 8 - 10 09/07/16 21:15 09/09/16 11:12 Lorazepam (Ativan Inj) 1 mg Q4H PRN IV PUSH CIWA 8 - 10 09/07/16 21:15 09/08/16 11:49 IV Flush (NS Flush) 2 ml UNSCH PRN IV FLUSH FLUSH AFTER USING IV ACCESS 09/07/16 23:30 09/10/16 00:27 IV Flush 2 ml 2 ml BID IV FLUSH 09/08/16 09:00 09/10/16 21:43 Multivitamins/ Folic Acid/Sodium Chloride (Mvi-12 Inj/ Folvite Inj/NS 500 ml Inj) 510.2 ml @ 125 mls/hr Q24H IV 09/07/16 23:30 09/12/16 23:29 09/10/16 23:30 Ondansetron HCl (Zofran Inj) 4 mg Q6H PRN IVP NAUSEA OR VOMITING 09/07/16 23:30 09/08/16 08:57 Acetaminophen (Tylenol) 650 mg Q6H PRN PO FEVER 09/07/16 23:30 09/09/16 21:54 Oxycodone HCl (Roxicodone) 10 mg Q4H PRN PO PAIN SCALE 6 TO 10 09/07/16 23:30 09/11/16 01:07 Trazodone HCl (Desyrel) 100 mg HS PO 09/08/16 21:00 09/10/16 21:43 Iron Dextran (Infed Inj) 100 mg DAILY IM 09/10/16 10:00 09/10/16 12:01 Pantoprazole Sodium (Protonix) 40 mg DAILY PO 09/10/16 12:00 09/10/16 12:01 Objective Remarks GENERAL: Middle aged male, lying in bed, resting SKIN: Warm and dry. +jaundice HEAD: Normocephalic. EYES: + scleral icterus. No injection or drainage. NECK: Supple, trachea midline. CARDIOVASCULAR: Regular rate and rhythm RESPIRATORY: Breath sounds equal bilaterally. No accessory muscle use. GASTROINTESTINAL: Abdomen soft, non-tender, nondistended. EXTREMITIES: No cyanosis, or edema. MUSCULOSKELETAL: Adequate muscle tone. NEUROLOGICAL: No obvious focal deficit. Awake, alert, and oriented x3. Assessment/Plan Problem List: (1) Pancytopenia Status: Acute Plan: 09/11: monitor CBC, continue iron supplementation --counts will improve to baseline once effects of alcohol wear off --due to hypersplenism as well as bone marrow suppression from alcoholism (2) Iron deficiency anemia Status: Acute Plan: --ferrous sulfate 325mg PO TID --Microcytic hyperchromic anemia due to iron deficiency. Assessment 56y/o male with pancytopenia. history of alcoholism + cirrhosis of the liver. Attending Statement no new c/o feels better. continue oral iron The exam, history, and the medical decision-making described in the above note were completed with the assistance of the mid-level provider. I reviewed and agree with the findings presented. I attest that I had a [id number] encounter with the patient on the same day, and personally performed and documented my assessment and findings in the medical record. Problem Qualifiers (1) Iron deficiency anemia: Qualified Code: D50.9 - Iron deficiency anemia, unspecified iron deficiency anemia type Afshan Chopra Sep 11, 2016 08:43 Nayana Nation MD Sep 11, 2016 19:41
[2016-09-11 08:54] LABS: PLATELET ESTIMATE SMEAR LOW (NORMAL); PLATELET MORPHOLOGY NORMAL (NORMAL); SCAN/DIFF AUTO DIFF CONFIRMED; TARGET CELLS 1+ (NORMAL)
[2016-09-11] MEDS: PANTOPRAZOLE SOD 40 MG DELAYED RELEASE TAB PO SCH (08:54)
[2016-09-11] MEDS: SODIUM CHLORIDE 0.9% FLUSH 5 ML FLUSH IV FLUSH SCH ×2 (08:54→22:00)
[2016-09-11] MEDS: THIAMINE HCL 100 MG TAB PO SCH (08:54)
[2016-09-11] MEDS: FERROUS SULFATE 325 MG (65 MG ELEMENTAL IRON) TAB PO SCH ×3 (08:54→18:22)
[2016-09-11] MEDS: IRON DEXTRAN 100 MG/2 ML VIAL IM SCH (08:54)
[2016-09-11 09:06] LABS: ALKALINE PHOSPHATASE 123 U/L (45-117); ALT (GPT) 22 U/L (12-78); ANION GAP 8 MEQ/L (5-15); AST (GOT) 78 U/L (15-37); BICARBONATE 26.7 MEQ/L (21.0-32.0); BLOOD UREA NITROGEN 4 MG/DL (7-18); CHLORIDE 104 MEQ/L (98-107); GLOMERULAR FILTRATION RATE 114 ML/MIN (>89); MAGNESIUM 1.8 MG/DL (1.5-2.5); POTASSIUM 3.7 MEQ/L (3.5-5.1); SODIUM (NA) 139 MEQ/L (136-145)
[2016-09-11] MEDS: LORazepam 1 MG TAB PO PRN (09:11)
--- NOTE | 2016-09-11 09:49 | HHI.PR ---
Subjective Remarks Follow-up pancytopenia, alcohol abuse and withdrawal Patient denies any chest pain or shortness of breath Patient denies melena or hematochezia. Denies nausea, vomiting or abdominal pain Vital signs stable Objective Vitals Vital Signs Date Time Temp Pulse Resp B/P Pulse Ox O2 Delivery O2 Flow Rate FiO2 09/11/16 08:00 98.1 88 20 112/68 97 09/11/16 04:00 98.5 88 18 108/64 96 09/11/16 00:45 98.5 90 18 103/64 96 09/10/16 20:00 98.7 94 18 101/66 95 09/10/16 18:12 98.2 94 16 114/81 94 09/10/16 17:44 98.1 81 16 108/70 98 09/10/16 16:00 98.0 94 17 108/68 96 09/10/16 12:00 97.3 95 16 119/70 96 I/O 09/10/16 09/10/16 09/10/16 09/11/16 09/11/16 09/11/16 07:00 15:00 23:00 07:00 15:00 23:00 Intake Total 240 ml 280 ml 480 ml 360 ml Balance 240 ml 280 ml 480 ml 360 ml Intake Oral 240 ml 280 ml 480 ml 360 ml # Voids 2 3 2 3 # Bowel Movements 2 Result Diagram: 09/11/16 0700 09/11/16 0700 Imaging Last Impressions Liver Ultrasound 09/08/16 0000 Signed Impressions: Service Date/Time: Thursday, September 08, 2016 15:07 - CONCLUSION: 1. Cirrhosis with abdominal ascites. 2. Simple hepatic cyst. 3. Splenomegaly. Mo Collins MD Objective Remarks GENERAL: Middle-aged white male in no acute distress. HEENT: PERRLA, EOMI. No scleral icterus or conjunctival pallor. No lid lag or facial droop. CARDIOVASCULAR: Regular rate and rhythm. No obvious murmurs to auscultation. No chest tenderness to palpation. RESPIRATORY: No obvious rhonchi or wheezing. Clear to auscultation. Breath sounds equal bilaterally. GASTROINTESTINAL: Abdomen soft, non-tender, nondistended. BS normal. MUSCULOSKELETAL: Extremities without clubbing, cyanosis, or edema. No obvious deformities. NEUROLOGICAL: Awake, alert and oriented x4. No focal neurologic deficits. Moving both upper and lower extremities spontaneously. Mild tremors on upper extremities noted. Medications and IVs Current Medications Medications (Trade) Dose Ordered Sig/Jamila Route Start Time Stop Time Status Last Admin (Tylenol) 650 mg Q4H PRN PO 09/07/16 21:15 (Romazicon Inj) 0.2 mg Q1M PRN IV PUSH 09/07/16 21:15 (Ativan) 1 mg Q4H PRN PO 09/07/16 21:15 09/11/16 09:11 (Ativan Inj) 1 mg Q4H PRN IV PUSH 09/07/16 21:15 09/08/16 11:49 (Ativan) 2 mg Q2H PRN PO 09/07/16 21:15 (Ativan Inj) 2 mg Q2H PRN IV PUSH 09/07/16 21:15 (Ativan Inj) 2 mg Q1H PRN IV PUSH 09/07/16 21:15 (Ativan Inj) 2 mg Q15M PRN IV PUSH 09/07/16 21:15 (NS Flush) 2 ml UNSCH PRN IV FLUSH 09/07/16 23:30 09/10/16 00:27 IV Flush 2 ml 2 ml BID IV FLUSH 09/08/16 09:00 09/11/16 08:54 (Mvi-12 Inj/ Folvite Inj/NS 500 ml Inj) 510.2 ml @ 125 mls/hr Q24H IV 09/07/16 23:30 09/12/16 23:29 09/10/16 23:30 (Vitamin B1) 100 mg DAILY PO 09/11/16 09:00 09/11/16 08:54 (Zofran Inj) 4 mg Q6H PRN IVP 09/07/16 23:30 09/08/16 08:57 (Dulcolax Supp) 10 mg DAILY PRN VT 09/07/16 23:30 (Tylenol) 650 mg Q6H PRN PO 09/07/16 23:30 09/09/16 21:54 (Roxicodone) 10 mg Q4H PRN PO 09/07/16 23:30 09/11/16 01:07 (Roxicodone) 5 mg Q4H PRN PO 09/07/16 23:30 (Desyrel) 100 mg HS PO 09/08/16 21:00 09/10/16 21:43 (Infed Inj) 100 mg DAILY IM 09/10/16 10:00 09/11/16 08:54 (Protonix) 40 mg DAILY PO 09/10/16 12:00 09/11/16 08:54 Ferrous Sulfate 325 mg 325 mg TID PO 09/11/16 09:00 09/11/16 08:54 (NS 250 ml Inj) 250 ml @ 15 mls/hr ONCE ONCE IV 09/11/16 09:45 09/12/16 02:24 UNV (Tylenol) 650 mg Q4H PRN PO 09/11/16 09:45 09/11/16 13:46 UNV (Benadryl) 25 mg Q4H PRN PO 09/11/16 09:45 09/11/16 13:46 UNV A/P Problem List: (1) Hypokalemia ICD Code: E87.6 Status: Resolved (2) Hypocalcemia ICD Code: E83.51 Status: Resolved (3) Alcohol abuse ICD Code: F10.10 Status: Chronic (4) Suicidal ideation ICD Code: R45.851 Status: Acute (5) Liver cirrhosis ICD Code: K74.60 Status: Acute (6) Pancytopenia ICD Code: D61.818 Status: Acute (7) Iron deficiency anemia ICD Code: D50.9 Status: Acute Assessment and Plan 56 year old male patient with ETOH abuse history, electrolyte imbalance and pancytopenia Hypokalemia: potassium 3.1 replaced with potassium 40 meq PO, 30 meq PO and 20 meq IV mag 1.5 replaced with 2 gram IV 09/09 Resolved. continue to monitor and replace as needed. Hypocalcemia: likely related to ETOH abuse Ca 7.6 sp IV Calcium gluconate replacement Calcium level improving. Continue to monitor and replace as needed. 09/10 K Ca 7.9 - Continue to monitor and replace as needed. 09/11 Corrected Calcium is 9. Continue to monitor and replace as needed. Pancytopenia Thrombocytopenia: Platelets 17 -->19 -->16, no active bleeding, likely chronic secondary to long-standing alcohol abuse. Given down trend will transfuse 1 unit of platelets. 09/10 Platelets today 26 K but still trending down. Consult hematology. 09/11 Appreciate hematology recommendations. 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 Will transfuse 2 units of platelets to a goal of more than 50 k so that EGD and colonoscopy can be performed. Continue to monitor CBC. WBC stable at 2.5. Anemia: Hemoglobin dropping from 7.2-6.6. Patient sp transfusion of 2 units of PRBC on 09/09/16. Hemoccult negative. GI consulted. Appreciate recommendations. Patient will need EGD and colonoscopy once platelets and hemoglobin stable. 09/11 sp transfusion of 1 unit of PRBC's with appropriate - hemoglobin today 8.4. Iron studies consistent with iron deficiency anemia. Alcohol Abuse/alcohol withdrawal: Seizure Precautions, CIWA, MVT/Thiamine/ Folate replacement. 09/11 withdrawal improving and almost resolved. Elevated LFTs US liver reveals Cirrhosis with abdominal ascites, simple hepatic cyst and Splenomegaly, follow-up, GI following. AST trending down - now 78. Increased AST due to etoh abuse. Suicidal Ideation: Seen by psychiatry Mathias Act lifted. started on trazodone 100 mg QHS DVT Prophylaxis: SCD/Teds- avoid chemical DVT prophylaxis in light of thrombocytopenia Social work for d/c planning as needed. Discharge Planning Dc pending EGD/colonoscpy by GI and clearance. Problem Qualifiers (1) Iron deficiency anemia: Qualified Code: D50.9 - Iron deficiency anemia, unspecified iron deficiency anemia type Terry Perez MD Sep 11, 2016 09:49
[2016-09-11] MEDS ORDERED: SODIUM CHLOR 0.9% 250 ML INJ 250 ML IV ONE (10:00)
[2016-09-11] MEDS ORDERED: diphenhydrAMINE HCL 25 MG CAP PO PRN (10:00)
[2016-09-11] MEDS ORDERED: ACETAMINOPHEN 325 MG TAB PO PRN (10:00)
--- NOTE | 2016-09-11 10:15 | HHI.GIFU ---
Subjective Remarks Patient resting in bed reports mild nausea and abdomen discomfort, no hematochezia or melena or vomiting (Solomon,Nolan BILLIARD PARLOR MANAGER) Objective Vitals I&O Vital Signs Date Time Temp Pulse Resp B/P Pulse Ox O2 Delivery O2 Flow Rate FiO2 09/11/16 08:00 98.1 88 20 112/68 97 09/11/16 04:00 98.5 88 18 108/64 96 09/11/16 00:45 98.5 90 18 103/64 96 09/10/16 20:00 98.7 94 18 101/66 95 09/10/16 18:12 98.2 94 16 114/81 94 09/10/16 17:44 98.1 81 16 108/70 98 09/10/16 16:00 98.0 94 17 108/68 96 09/10/16 12:00 97.3 95 16 119/70 96 I/O 09/10/16 09/10/16 09/10/16 09/11/16 09/11/16 09/11/16 07:00 15:00 23:00 07:00 15:00 23:00 Intake Total 240 ml 280 ml 480 ml 360 ml Balance 240 ml 280 ml 480 ml 360 ml Intake Oral 240 ml 280 ml 480 ml 360 ml # Voids 2 3 2 3 # Bowel Movements 2 Laboratory Laboratory Tests Test 09/10/16 09/10/16 09/11/16 09/11/16 13:08 15:39 07:00 09:33 Prothrombin Time 24.8 27.5 Prothromb Time International 2.2 2.4 Ratio Blood Type AB NEGATIVE Crossmatch Leukocyte-Reduced Red Blood Cells Blood Bank Comment White Blood Count 2.5 Red Blood Count 3.33 Hemoglobin 8.4 Hematocrit 26.1 Mean Corpuscular Volume 78.4 Mean Corpuscular Hemoglobin 25.1 Mean Corpuscular Hemoglobin 32.0 Concent Red Cell Distribution Width 21.1 Platelet Count 28 Mean Platelet Volume 8.7 Neutrophils (%) (Auto) 48.1 Lymphocytes (%) (Auto) 31.0 Monocytes (%) (Auto) 15.6 Eosinophils (%) (Auto) 4.6 Basophils (%) (Auto) 0.7 Neutrophils # (Auto) 1.2 Lymphocytes # (Auto) 0.8 Monocytes # (Auto) 0.4 Eosinophils # (Auto) 0.1 Basophils # (Auto) 0.0 CBC Comment AUTO DIFF Differential Comment AUTO DIFF CONFIRMED Platelet Estimate LOW Platelet Morphology Comment NORMAL Target Cells 1+ Sodium Level 139 Potassium Level 3.7 Chloride Level 104 Carbon Dioxide Level 26.7 Anion Gap 8 Blood Urea Nitrogen 4 Creatinine 0.72 Estimat Glomerular Filtration 114 Rate Random Glucose 81 Calcium Level 7.5 Phosphorus Level 3.8 Magnesium Level 1.8 Total Bilirubin 7.0 Aspartate Amino Transf 78 (AST/SGOT) Alanine Aminotransferase 22 (ALT/SGPT) Alkaline Phosphatase 123 Total Protein 6.2 Albumin 2.1 Vitamin B12 Level 1875 Folate GREATER THAN 20.0 Date/Time Procedure Status Source Growth 09/09/16 14:28 Stool Occult Blood ([facility]) - Final Complete Stool Stool HEMOCCULT NEGATIVE Imaging Last Impressions Liver Ultrasound 09/08/16 0000 Signed Impressions: Service Date/Time: Saturday, September 08, 2016 15:07 - CONCLUSION: 1. Cirrhosis with abdominal ascites. 2. Simple hepatic cyst. 3. Splenomegaly. Mo Collins MD Physical Exam HEENT: Normocephalic; atraumatic;+ jaundice. CHEST: CTA CARDIAC: RRR ABDOMEN: Soft, nondistended, nontender; hepatosplenomegaly; bowel sounds are present in all four quadrants. EXTREMITIES: No clubbing, cyanosis, or edema. SKIN: Normal; no rash; + jaundice. MALTER OPERATOR: No focal deficits; alert and oriented times three. (Nolan Carbajal) Assessment and Plan Plan ASSESSMENT: - Anemia, hgb stable, no sings of bleeding. Plan for EGD/Colonoscopy in am, he will receive 2 units of plt today, this was discussed with Dr. Latif - Pancytopenia. WBC 2.5, - Thrombocytopenia Plt 28. he will receive 2 units of plt today, this was discussed with Dr. Latif - Liver cirrhosis. Liver Ultrasound (09/08/16)----> 1. Cirrhosis with abdominal ascites. 2. Simple hepatic cyst. 3. Splenomegaly. Recently started drinking again over the past several months. LFTs pattern consistent with alcohol - Alcohol abuse- cessation highly recommended PLAN: - clear liquids - EGD/Colonoscopy in am - Obtain consents - Golytely today - NPO mn - CBC, CMP, PT/INR in am - Cont. PPI - Supportive care - Further recommendations to follow based on results of above - Pt seen and examined by Dr. Becker and myself and this note is written on his behalf (Nolan Carbajal) Physician Comments Patient seen and examined Agree with above Continue with current supportive care Monitor labs EGD colonoscopy tomorrow (Onesimo Becker MD) Nolan Carbajal Sep 11, 2016 10:14 Onesimo Becker MD Sep 11, 2016 21:40
[2016-09-11] MEDS ORDERED: PEG (High)/E-LYTE SOLN 4000 ML BTL PO ONE (16:00)
[2016-09-11] MEDS: traZODone HCL 100 MG TAB PO SCH (22:01)
[2016-09-11] MEDS: MULTIVITAMIN INJ 10 ML, FOLIC ACID INJ 1 MG in SODIUM CHLORID 0.9% 500 ML INJ 500 ML IV SCH (23:30)
[2016-09-12] VITALS (7 sets, daily range): BP systolic 104–116; BP diastolic 38–62; PULSE 78–89; RESP 16–20; TEMP 97.5–98.3; O2SAT 93–95
[2016-09-12] MEDS: THIAMINE HCL 100 MG TAB PO SCH (09:04)
[2016-09-12] MEDS: PANTOPRAZOLE SOD 40 MG DELAYED RELEASE TAB PO SCH (09:04)
[2016-09-12] MEDS: FERROUS SULFATE 325 MG (65 MG ELEMENTAL IRON) TAB PO SCH ×3 (09:04→18:20)
[2016-09-12] MEDS: LACTATED RINGER'S 1000 ML IV SCH (09:05)
[2016-09-12] MEDS: IRON DEXTRAN 100 MG/2 ML VIAL IM SCH (09:05)
[2016-09-12] MEDS: SODIUM CHLORIDE 0.9% FLUSH 5 ML FLUSH IV FLUSH SCH (09:05)
[2016-09-12 09:31] LABS: INTERNATIONAL NORMALIZED RATIO 2.2 RATIO; PROTHROMBIN TIME - PATIENT 25.3 SEC (9.8-11.6)
[2016-09-12 09:39] LABS: AUTOMATED NEUTROPHIL # 1.2 TH/MM3 (1.8-7.7); BASOPHIL % 0.7 % (0.0-2.0); EOSINOPHIL # 0.1 TH/MM3 (0-0.4); EOSINOPHIL % 3.6 % (0.0-4.0); HEMATOCRIT 27.9 % (39.0-51.0); LYMPH % 27.5 % (9.0-44.0); LYMPHOCYTE # 0.7 TH/MM3 (1.0-4.8); MEAN CORPUSCULAR HEMOGLOBIN 25.5 PG (27.0-34.0); MEAN CORPUSCULAR HGB CONC 32.2 % (32.0-36.0); MONO % 19.3 % (0.0-8.0); NEUT % 48.9 % (16.0-70.0); PLATELET COUNT 69 TH/MM3 (150-450); RED BLOOD COUNT 3.54 MIL/MM3 (4.50-5.90); WHITE BLOOD COUNT 2.5 TH/MM3 (4.0-11.0)
[2016-09-12 09:43] LABS: HEMO FLAGS AUTO DIFF
[2016-09-12] MEDS ORDERED: PNEUMOCOCCAL POLYVALENT INJ 25 MCG/0.5 ML SYR IM ONE (10:00)
[2016-09-12 10:01] LABS: ALKALINE PHOSPHATASE 105 U/L (45-117); ALT (GPT) 22 U/L (12-78); ANION GAP 10 MEQ/L (5-15); AST (GOT) 70 U/L (15-37); BICARBONATE 25.4 MEQ/L (21.0-32.0); BLOOD UREA NITROGEN 4 MG/DL (7-18); CHLORIDE 105 MEQ/L (98-107); GLOMERULAR FILTRATION RATE 119 ML/MIN (>89); POTASSIUM 3.6 MEQ/L (3.5-5.1); SODIUM (NA) 140 MEQ/L (136-145); TOTAL BILIRUBIN ADULT 5.5 MG/DL (0.2-1.0)
[2016-09-12 10:12] LABS: ACANTHOCYTES OCC (NORMAL); TARGET CELLS 1+ (NORMAL)
[2016-09-12 10:13] LABS: HELMET CELLS OCC (NORMAL); PLATELET ESTIMATE SMEAR LOW (NORMAL); PLATELET MORPHOLOGY NORMAL (NORMAL); SCAN/DIFF AUTO DIFF CONFIRMED
--- NOTE | 2016-09-12 12:21 | PD.ONC.PN ---
Subjective Subjective Remarks Afebrile overnight. patient without complaint. Objective Data Date Time Temp Pulse Resp B/P Pulse Ox O2 Delivery O2 Flow Rate FiO2 09/12/16 08:11 97.5 80 18 116/56 94 09/12/16 04:19 97.8 78 20 104/59 93 09/12/16 00:13 98.3 78 20 104/58 93 09/11/16 20:00 97.8 80 18 102/59 92 09/11/16 16:00 97.9 76 14 117/75 96 09/11/16 15:10 98.1 76 14 117/75 94 09/12/16 09/12/16 09/12/16 07:00 15:00 23:00 Intake Total 240 ml Balance 240 ml Result Diagram: 09/12/16 0857 09/12/16 0857 Laboratory Results Laboratory Tests Test 09/12/16 08:57 White Blood Count 2.5 TH/MM3 Red Blood Count 3.54 MIL/MM3 Hemoglobin 9.0 GM/DL Hematocrit 27.9 % Mean Corpuscular Volume 79.0 FL Mean Corpuscular Hemoglobin 25.5 PG Mean Corpuscular Hemoglobin 32.2 % Concent Red Cell Distribution Width 22.0 % Platelet Count 69 TH/MM3 Mean Platelet Volume 8.7 FL Neutrophils (%) (Auto) 48.9 % Lymphocytes (%) (Auto) 27.5 % Monocytes (%) (Auto) 19.3 % Eosinophils (%) (Auto) 3.6 % Basophils (%) (Auto) 0.7 % Neutrophils # (Auto) 1.2 TH/MM3 Lymphocytes # (Auto) 0.7 TH/MM3 Monocytes # (Auto) 0.5 TH/MM3 Eosinophils # (Auto) 0.1 TH/MM3 Basophils # (Auto) 0.0 TH/MM3 CBC Comment AUTO DIFF Differential Comment AUTO DIFF CONFIRMED Platelet Estimate LOW Platelet Morphology Comment NORMAL Basophilic Stippling FAINT Target Cells 1+ Helmet Cells OCC Acanthocytes OCC Prothrombin Time 25.3 SEC Prothromb Time International 2.2 RATIO Ratio Sodium Level 140 MEQ/L Potassium Level 3.6 MEQ/L Chloride Level 105 MEQ/L Carbon Dioxide Level 25.4 MEQ/L Anion Gap 10 MEQ/L Blood Urea Nitrogen 4 MG/DL Creatinine 0.69 MG/DL Estimat Glomerular Filtration 119 ML/MIN Rate Random Glucose 78 MG/DL Calcium Level 7.5 MG/DL Total Bilirubin 5.5 MG/DL Aspartate Amino Transf 70 U/L (AST/SGOT) Alanine Aminotransferase 22 U/L (ALT/SGPT) Alkaline Phosphatase 105 U/L Total Protein 6.2 GM/DL Albumin 2.1 GM/DL Culture Results Microbiology Date/Time Procedure Status Source Growth 09/09/16 14:28 Stool Occult Blood ([facility]) - Final Complete Stool Stool HEMOCCULT NEGATIVE Administered Medications Medications (Trade) Dose Ordered Sig/Jamila Route PRN Reason Start Time Stop Time Status Last Admin Dose Admin Lorazepam (Ativan) 1 mg Q4H PRN PO CIWA 8 - 10 09/07/16 21:15 09/11/16 09:11 Lorazepam (Ativan Inj) 1 mg Q4H PRN IV PUSH CIWA 8 - 10 09/07/16 21:15 09/08/16 11:49 IV Flush (NS Flush) 2 ml UNSCH PRN IV FLUSH FLUSH AFTER USING IV ACCESS 09/07/16 23:30 09/10/16 00:27 IV Flush 2 ml 2 ml BID IV FLUSH 09/08/16 09:00 09/12/16 09:05 Multivitamins/ Folic Acid/Sodium Chloride (Mvi-12 Inj/ Folvite Inj/NS 500 ml Inj) 510.2 ml @ 125 mls/hr Q24H IV 09/07/16 23:30 09/12/16 23:29 09/11/16 23:30 Thiamine HCl (Vitamin B1) 100 mg DAILY PO 09/11/16 09:00 09/12/16 09:04 Ondansetron HCl (Zofran Inj) 4 mg Q6H PRN IVP NAUSEA OR VOMITING 09/07/16 23:30 09/08/16 08:57 Acetaminophen (Tylenol) 650 mg Q6H PRN PO FEVER 09/07/16 23:30 09/09/16 21:54 Oxycodone HCl (Roxicodone) 10 mg Q4H PRN PO PAIN SCALE 6 TO 10 09/07/16 23:30 09/11/16 01:07 Trazodone HCl (Desyrel) 100 mg HS PO 09/08/16 21:00 09/11/16 22:01 Iron Dextran (Infed Inj) 100 mg DAILY IM 09/10/16 10:00 09/12/16 09:05 Pantoprazole Sodium (Protonix) 40 mg DAILY PO 09/10/16 12:00 09/12/16 09:04 Ferrous Sulfate 325 mg 325 mg TID PO 09/11/16 09:00 09/12/16 09:04 Lactated Ringer's (Lr 1000 ml Inj) 1,000 ml @ 30 mls/hr Q24H IV 09/12/16 06:00 09/12/16 09:05 Objective Remarks GENERAL: Middle aged male, lying supine in bed SKIN: Warm and dry. +jaundice HEAD: Normocephalic. EYES: + scleral icterus. No injection or drainage. NECK: Supple, trachea midline. CARDIOVASCULAR: Regular rate and rhythm RESPIRATORY: Breath sounds equal bilaterally. No accessory muscle use. GASTROINTESTINAL: Abdomen soft, non-tender, nondistended. EXTREMITIES: No cyanosis, or edema. MUSCULOSKELETAL: Adequate muscle tone. NEUROLOGICAL: awake and alert, normal speech. Assessment/Plan Problem List: (1) Pancytopenia Status: Acute Plan: 09/12: patient clear for discharge from hematology perspective. counts will continue to improve as long as much abstains from alcohol --counts will improve to baseline once effects of alcohol wear off --due to hypersplenism as well as bone marrow suppression from alcoholism (2) Iron deficiency anemia Status: Acute Plan: --ferrous sulfate 325mg PO TID --Microcytic hyperchromic anemia due to iron deficiency. Assessment 56y/o male with pancytopenia. history of alcoholism + cirrhosis of the liver. Attending Statement no new c/o Had plat tx yesterday. Plat are >50K for EGD and colonoscopy today ok to d/c sign off available prn. The exam, history, and the medical decision-making described in the above note were completed with the assistance of the mid-level provider. I reviewed and agree with the findings presented. I attest that I had a [id number] encounter with the patient on the same day, and personally performed and documented my assessment and findings in the medical record. Problem Qualifiers (1) Iron deficiency anemia: Qualified Code: D50.9 - Iron deficiency anemia, unspecified iron deficiency anemia type Afshan Chopra Sep 12, 2016 12:21 Nayana Nation MD Sep 12, 2016 22:03
--- NOTE | 2016-09-12 12:35 | HHI.PR ---
Subjective Remarks Denies cp/sob denies tremors, hallucinations stable vital signs Objective Vitals Vital Signs Date Time Temp Pulse Resp B/P Pulse Ox O2 Delivery O2 Flow Rate FiO2 09/12/16 08:11 97.5 80 18 116/56 94 09/12/16 04:19 97.8 78 20 104/59 93 09/12/16 00:13 98.3 78 20 104/58 93 09/11/16 20:00 97.8 80 18 102/59 92 09/11/16 16:00 97.9 76 14 117/75 96 09/11/16 15:10 98.1 76 14 117/75 94 I/O 09/11/16 09/11/16 09/11/16 09/12/16 09/12/16 09/12/16 07:00 15:00 23:00 07:00 15:00 23:00 Intake Total 360 ml 240 ml 480 ml 240 ml Balance 360 ml 240 ml 480 ml 240 ml Intake Oral 360 ml 240 ml 480 ml 240 ml # Voids 3 2 3 2 Result Diagram: 09/12/16 0857 09/12/16 0857 Imaging Last Impressions Liver Ultrasound 09/08/16 0000 Signed Impressions: Service Date/Time: Thursday, September 08, 2016 15:07 - CONCLUSION: 1. Cirrhosis with abdominal ascites. 2. Simple hepatic cyst. 3. Splenomegaly. Mo Collins MD Objective Remarks GENERAL: Middle-aged white male in no acute distress. HEENT: PERRLA, EOMI. No scleral icterus or conjunctival pallor. No lid lag or facial droop. CARDIOVASCULAR: Regular rate and rhythm. No obvious murmurs to auscultation. No chest tenderness to palpation. RESPIRATORY: No obvious rhonchi or wheezing. Clear to auscultation. Breath sounds equal bilaterally. GASTROINTESTINAL: Abdomen soft, non-tender, nondistended. BS normal. MUSCULOSKELETAL: Extremities without clubbing, cyanosis, or edema. No obvious deformities. NEUROLOGICAL: Awake, alert and oriented x4. No focal neurologic deficits. Moving both upper and lower extremities spontaneously. Mild tremors on upper extremities noted. Medications and IVs Current Medications Medications (Trade) Dose Ordered Sig/Jamila Route Start Time Stop Time Status Last Admin (Tylenol) 650 mg Q4H PRN PO 09/07/16 21:15 (Romazicon Inj) 0.2 mg Q1M PRN IV PUSH 09/07/16 21:15 (Ativan) 1 mg Q4H PRN PO 09/07/16 21:15 09/11/16 09:11 (Ativan Inj) 1 mg Q4H PRN IV PUSH 09/07/16 21:15 09/08/16 11:49 (Ativan) 2 mg Q2H PRN PO 09/07/16 21:15 (Ativan Inj) 2 mg Q2H PRN IV PUSH 09/07/16 21:15 (Ativan Inj) 2 mg Q1H PRN IV PUSH 09/07/16 21:15 (Ativan Inj) 2 mg Q15M PRN IV PUSH 09/07/16 21:15 (NS Flush) 2 ml UNSCH PRN IV FLUSH 09/07/16 23:30 09/10/16 00:27 IV Flush 2 ml 2 ml BID IV FLUSH 09/08/16 09:00 09/12/16 09:05 (Mvi-12 Inj/ Folvite Inj/NS 500 ml Inj) 510.2 ml @ 125 mls/hr Q24H IV 09/07/16 23:30 09/12/16 23:29 09/11/16 23:30 (Vitamin B1) 100 mg DAILY PO 09/11/16 09:00 09/12/16 09:04 (Zofran Inj) 4 mg Q6H PRN IVP 09/07/16 23:30 09/08/16 08:57 (Dulcolax Supp) 10 mg DAILY PRN CA 09/07/16 23:30 (Tylenol) 650 mg Q6H PRN PO 09/07/16 23:30 09/09/16 21:54 (Roxicodone) 10 mg Q4H PRN PO 09/07/16 23:30 09/11/16 01:07 (Roxicodone) 5 mg Q4H PRN PO 09/07/16 23:30 (Desyrel) 100 mg HS PO 09/08/16 21:00 09/11/16 22:01 (Infed Inj) 100 mg DAILY IM 09/10/16 10:00 09/12/16 09:05 (Protonix) 40 mg DAILY PO 09/10/16 12:00 09/12/16 09:04 Ferrous Sulfate 325 mg 325 mg TID PO 09/11/16 09:00 09/12/16 09:04 (Lr 1000 ml Inj) 1,000 ml @ 30 mls/hr Q24H IV 09/12/16 06:00 09/12/16 09:05 Urinary Catheter: No Vascular Central Line Catheter: No A/P Problem List: (1) Hypokalemia ICD Code: E87.6 Status: Resolved (2) Hypocalcemia ICD Code: E83.51 Status: Resolved (3) Alcohol abuse ICD Code: F10.10 Status: Chronic (4) Suicidal ideation ICD Code: R45.851 Status: Acute (5) Liver cirrhosis ICD Code: K74.60 Status: Acute (6) Pancytopenia ICD Code: D61.818 Status: Acute (7) Iron deficiency anemia ICD Code: D50.9 Status: Acute Assessment and Plan 56 year old male patient with ETOH abuse history, electrolyte imbalance and pancytopenia Hypokalemia: potassium 3.1 replaced with potassium 40 meq PO, 30 meq PO and 20 meq IV mag 1.5 replaced with 2 gram IV 09/09 Resolved. continue to monitor and replace as needed. Hypocalcemia: likely related to ETOH abuse Ca 7.6 sp IV Calcium gluconate replacement Calcium level improving. Continue to monitor and replace as needed. 09/10 K Ca 7.9 - Continue to monitor and replace as needed. 09/11 Corrected Calcium is 9. Continue to monitor and replace as needed. Pancytopenia Thrombocytopenia: Platelets 17 -->19 -->16, no active bleeding, likely chronic secondary to long-standing alcohol abuse. Given down trend will transfuse 1 unit of platelets. 09/10 Platelets today 26 K but still trending down. Consult hematology. 09/11 Appreciate hematology recommendations. 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 Will transfuse 2 units of platelets to a goal of more than 50 k so that EGD and colonoscopy can be performed. Continue to monitor CBC. WBC stable at 2.5. sp transfusion of 2 units of platelets - Ok to perform EGD/Colonoscopy. Anemia: Hemoglobin dropping from 7.2-6.6. Patient sp transfusion of 2 units of PRBC on 09/09/16. Hemoccult negative. GI consulted. Appreciate recommendations. Patient will need EGD and colonoscopy once platelets and hemoglobin stable. 09/11 sp transfusion of 1 unit of PRBC's with appropriate - hemoglobin today 8.4. Iron studies consistent with iron deficiency anemia. 09/12 For EGD/colonoscopy today. Alcohol Abuse/alcohol withdrawal: Seizure Precautions, CIWA, MVT/Thiamine/ Folate replacement. 09/11 withdrawal improving and almost resolved. Elevated LFTs Due to etoh abuse/liver cirrhosis US liver reveals Cirrhosis with abdominal ascites, simple hepatic cyst and Splenomegaly, follow-up, GI following. AST trending down - Continue to monitor Suicidal Ideation: Seen by psychiatry Mathias Act lifted. started on trazodone 100 mg QHS DVT Prophylaxis: SCD/Teds- avoid chemical DVT prophylaxis in light of thrombocytopenia Social work for d/c planning as needed. Discharge Planning Dc pending EGD/colonoscpy by GI and clearance. Problem Qualifiers (1) Iron deficiency anemia: Qualified Code: D50.9 - Iron deficiency anemia, unspecified iron deficiency anemia type Terry Perez MD Sep 12, 2016 12:35
[2016-09-12] MEDS ORDERED: PROPOFOL 200 MG/20 ML AMP IV ONE (13:36)
--- NOTE | 2016-09-12 14:07 | PD.PROCEDR ---
GI Procedure REFERRING PHYSICIAN JAYRO PROCEDURE PERFORMED EGD followed by colonoscopy INDICATION FOR PROCEDURE Anemia cirrhosis PROCEDURE: The procedure, risks and benefits were discussed with Mr. Morris and informed consent was obtained. Anesthesia sedated him with Diprivan. He was placed in the left lateral decubitus position. EGD: The Pentax videoscope was introduced through the oropharynx and advanced to the second portion of the duodenum under direct visualization. Retroflexion was performed in the stomach. FINDINGS: The esophagus the patient was noted to have grade 1 esophageal varices with no stigmata of recent bleed The stomach the gastric mucosa was somewhat edematous and a cobblestone appearance consistent with portal hypertensive gastropathy no varices no ulcers no erosions no blood or bleeding The duodenum this was normal Colonoscopy: The Pentax videoscope was introduced through the rectum and advanced to the cecum where the ileocecal valve and appendiceal orifice were identified. Retroflexion was performed in the rectum. Colonic prep was good FINDINGS: Colonic withdrawal time greater than 6 minutes as the scope was slowly withdrawn colonic mucosa was carefully inspected the patient was noted to have a 6-7 mm polyp in the descending colon we were unable to remove due to coagulopathy otherwise colonic examination was unremarkable retroflexion did reveal moderate size internal hemorrhoids rectal examination otherwise unremarkable ESTIMATED BLOOD LOSS: None SPECIMENS REMOVED: None COMPLICATIONS: None IMPRESSION: Grade 1 esophageal varices Portal hypertensive gastropathy Descending colon polyp Internal hemorrhoids PLAN: Supportive care Monitor labs Low-salt diet Avoid alcohol Onesimo Becker MD Sep 12, 2016 14:07
[2016-09-13] VITALS: BP 113/74; PULSE 80; RESP 18; TEMP 97.2; O2SAT 96
[2016-09-13] MEDS: traZODone HCL 100 MG TAB PO SCH (00:03)
[2016-09-13] MEDS: SODIUM CHLORIDE 0.9% FLUSH 5 ML FLUSH IV FLUSH SCH ×2 (00:05→08:26)
[2016-09-13] MEDS: LACTATED RINGER'S 1000 ML IV SCH (08:24)
[2016-09-13] MEDS: FERROUS SULFATE 325 MG (65 MG ELEMENTAL IRON) TAB PO SCH ×3 (08:25→17:18)
[2016-09-13] MEDS: PANTOPRAZOLE SOD 40 MG DELAYED RELEASE TAB PO SCH (08:25)
[2016-09-13] MEDS: THIAMINE HCL 100 MG TAB PO SCH (08:25)
[2016-09-13] MEDS: IRON DEXTRAN 100 MG/2 ML VIAL IM SCH (08:26)
[2016-09-13 08:27] LABS: HEMATOCRIT 29.8 % (39.0-51.0); MEAN CELL VOLUME 79.5 FL (80.0-100.0); MEAN CORPUSCULAR HEMOGLOBIN 25.2 PG (27.0-34.0); MEAN CORPUSCULAR HGB CONC 31.7 % (32.0-36.0); PLATELET COUNT 63 TH/MM3 (150-450); RED BLOOD COUNT 3.76 MIL/MM3 (4.50-5.90); WHITE BLOOD COUNT 2.8 TH/MM3 (4.0-11.0)
[2016-09-13 08:31] LABS: REVIEW FLAG FINAL
[2016-09-13 09:02] LABS: ALKALINE PHOSPHATASE 106 U/L (45-117); ALT (GPT) 23 U/L (12-78); ANION GAP 9 MEQ/L (5-15); AST (GOT) 68 U/L (15-37); BICARBONATE 26.6 MEQ/L (21.0-32.0); BLOOD UREA NITROGEN 5 MG/DL (7-18); CHLORIDE 105 MEQ/L (98-107); GLOMERULAR FILTRATION RATE 109 ML/MIN (>89); POTASSIUM 3.6 MEQ/L (3.5-5.1); SODIUM (NA) 141 MEQ/L (136-145)
[2016-09-13 09:07] VITALS: BP 117/74; PULSE 75; RESP 18; TEMP 97.5; O2SAT 92
--- NOTE | 2016-09-13 11:20 | HHI.GIFU ---
Subjective Remarks Resting in bed. Tolerating diet. No active bleeding. No n/v, abdominal pain. (Mela Sandoval) Objective Vitals I&O Vital Signs Date Time Temp Pulse Resp B/P Pulse Ox O2 Delivery O2 Flow Rate FiO2 09/13/16 09:07 97.5 75 18 117/74 92 09/13/16 00:00 97.2 80 18 113/74 96 09/12/16 20:00 98.2 89 18 110/62 95 09/12/16 16:00 97.6 80 18 111/56 94 09/12/16 14:06 80 16 96/61 92 09/12/16 13:59 78 16 103/65 93 09/12/16 13:54 97.6 80 16 99/65 94 09/12/16 12:47 97.8 88 16 111/38 93 09/12/16 12:00 97.8 88 18 111/58 93 I/O 09/12/16 09/12/16 09/12/16 09/13/16 09/13/16 09/13/16 07:00 15:00 23:00 07:00 15:00 23:00 Intake Total 240 ml 300 ml Balance 240 ml 300 ml Intake Oral 240 ml Other 300 ml # Voids 2 3 3 # Bowel Movements 0 2 Laboratory Laboratory Tests Test 09/13/16 07:46 White Blood Count 2.8 Red Blood Count 3.76 Hemoglobin 9.5 Hematocrit 29.8 Mean Corpuscular Volume 79.5 Mean Corpuscular Hemoglobin 25.2 Mean Corpuscular Hemoglobin 31.7 Concent Red Cell Distribution Width 23.0 Platelet Count 63 Mean Platelet Volume 8.6 Sodium Level 141 Potassium Level 3.6 Chloride Level 105 Carbon Dioxide Level 26.6 Anion Gap 9 Blood Urea Nitrogen 5 Creatinine 0.75 Estimat Glomerular Filtration 109 Rate Random Glucose 73 Calcium Level 7.5 Total Bilirubin 5.0 Aspartate Amino Transf 68 (AST/SGOT) Alanine Aminotransferase 23 (ALT/SGPT) Alkaline Phosphatase 106 Total Protein 6.3 Albumin 2.1 Date/Time Procedure Status Source Growth 09/09/16 14:28 Stool Occult Blood ([facility]) - Final Complete Stool Stool HEMOCCULT NEGATIVE Imaging Last Impressions Liver Ultrasound 09/08/16 0000 Signed Impressions: Service Date/Time: Thursday, September 08, 2016 15:07 - CONCLUSION: 1. Cirrhosis with abdominal ascites. 2. Simple hepatic cyst. 3. Splenomegaly. Mo Collins MD Physical Exam HEENT: Normocephalic; atraumatic;+ jaundice. CHEST: CTA CARDIAC: RRR ABDOMEN: Soft, nondistended, nontender; hepatosplenomegaly; bowel sounds are present in all four quadrants. EXTREMITIES: No clubbing, cyanosis, or edema. SKIN: Normal; no rash; + jaundice. COMMODITY DIRECTOR: No focal deficits; alert and oriented times three. (Mela Sandoval) Assessment and Plan Plan ASSESSMENT: - Anemia. S/P EGD/Colonoscopy (09/12/16)---> Grade 1 esophageal varices, portal hypertensive gastropathy, descending colon polyp, internal hemorrhoids. HH 9.5/29.8. PPI, Iron. - Pancytopenia secondary to liver cirrhosis.. WBC 2.8, HH 9.5/29.8, Plt 63. - Thrombocytopenia Plt 63. S/P 3 units of Platelets - Liver cirrhosis. Liver Ultrasound (09/08/16)----> 1. Cirrhosis with abdominal ascites. 2. Simple hepatic cyst. 3. Splenomegaly. Recently started drinking again over the past several months. LFTs pattern consistent with alcohol - Alcohol abuse- cessation highly recommended PLAN: - Low sodium diet - PPI - Avoid alcohol. - Monitor labs - Okay to d/c home from GI standpoint - Further recommendations to follow based on results of above - Pt seen and examined by Dr. Becker and myself and this note is written on his behalf (Mela Sandoval) Physician Comments Patient seen and examined Agree with above Continue with current supportive care Monitor labs Okay for discharge from a GI standpoint follow-up with GI in 2-3 weeks (Onesimo Becker MD) Mela Sandoval Sep 13, 2016 11:20 Onesimo Becker MD Sep 13, 2016 19:43
--- NOTE | 2016-09-13 12:10 | HHI.PR ---
Subjective Remarks no major overnight events c/o some stomach cramping last night which have resolved denies melena/hematochezia denies nausea/vomiting denies hallucinations hemoglobin stable Objective Vitals Vital Signs Date Time Temp Pulse Resp B/P Pulse Ox O2 Delivery O2 Flow Rate FiO2 09/13/16 09:07 97.5 75 18 117/74 92 09/13/16 00:00 97.2 80 18 113/74 96 09/12/16 20:00 98.2 89 18 110/62 95 09/12/16 16:00 97.6 80 18 111/56 94 09/12/16 14:06 80 16 96/61 92 09/12/16 13:59 78 16 103/65 93 09/12/16 13:54 97.6 80 16 99/65 94 09/12/16 12:47 97.8 88 16 111/38 93 09/12/16 12:00 97.8 88 18 111/58 93 I/O 09/12/16 09/12/16 09/12/16 09/13/16 09/13/16 09/13/16 07:00 15:00 23:00 07:00 15:00 23:00 Intake Total 240 ml 300 ml Balance 240 ml 300 ml Intake Oral 240 ml Other 300 ml # Voids 2 3 3 # Bowel Movements 0 2 Result Diagram: 09/13/16 0746 09/13/16 0746 Imaging Last Impressions Liver Ultrasound 09/08/16 0000 Signed Impressions: Service Date/Time: Thursday, September 08, 2016 15:07 - CONCLUSION: 1. Cirrhosis with abdominal ascites. 2. Simple hepatic cyst. 3. Splenomegaly. Mo Collins MD Objective Remarks GENERAL: Middle-aged white male in no acute distress. Skin: (+) jaundice HEENT: PERRLA, EOMI. Mild scleral icterus. No lid lag or facial droop. CARDIOVASCULAR: Regular rate and rhythm. No obvious murmurs to auscultation. No chest tenderness to palpation. RESPIRATORY: No obvious rhonchi or wheezing. Clear to auscultation. Breath sounds equal bilaterally. GASTROINTESTINAL: Abdomen soft, non-tender, nondistended. BS normal. MUSCULOSKELETAL: Extremities without clubbing, cyanosis, or edema. No obvious deformities. NEUROLOGICAL: Awake, alert and oriented x4. No focal neurologic deficits. Moving both upper and lower extremities spontaneously. no tremors noted. Procedures EGD/Colonoscopy on 09/13/16 - grade 1 esophageal varices and gastropathy observed on EGD. Descending colon polyp which was not removed observed on colonoscopy. Medications and IVs Current Medications Medications (Trade) Dose Ordered Sig/Jamila Route Start Time Stop Time Status Last Admin (Tylenol) 650 mg Q4H PRN PO 09/07/16 21:15 (Romazicon Inj) 0.2 mg Q1M PRN IV PUSH 09/07/16 21:15 (Ativan) 1 mg Q4H PRN PO 09/07/16 21:15 09/11/16 09:11 (Ativan Inj) 1 mg Q4H PRN IV PUSH 09/07/16 21:15 09/08/16 11:49 (Ativan) 2 mg Q2H PRN PO 09/07/16 21:15 (Ativan Inj) 2 mg Q2H PRN IV PUSH 09/07/16 21:15 (Ativan Inj) 2 mg Q1H PRN IV PUSH 09/07/16 21:15 (Ativan Inj) 2 mg Q15M PRN IV PUSH 09/07/16 21:15 (NS Flush) 2 ml UNSCH PRN IV FLUSH 09/07/16 23:30 09/10/16 00:27 (NS Flush) 2 ml BID IV FLUSH 09/08/16 09:00 09/13/16 08:26 (Vitamin B1) 100 mg DAILY PO 09/11/16 09:00 09/13/16 08:25 (Zofran Inj) 4 mg Q6H PRN IVP 09/07/16 23:30 09/08/16 08:57 (Dulcolax Supp) 10 mg DAILY PRN IN 09/07/16 23:30 (Tylenol) 650 mg Q6H PRN PO 09/07/16 23:30 09/09/16 21:54 (Roxicodone) 10 mg Q4H PRN PO 09/07/16 23:30 09/11/16 01:07 (Roxicodone) 5 mg Q4H PRN PO 09/07/16 23:30 (Desyrel) 100 mg HS PO 09/08/16 21:00 09/13/16 00:03 (Infed Inj) 100 mg DAILY IM 09/10/16 10:00 09/13/16 08:26 (Protonix) 40 mg DAILY PO 09/10/16 12:00 09/13/16 08:25 Ferrous Sulfate 325 mg 325 mg TID PO 09/11/16 09:00 09/13/16 08:25 (Lr 1000 ml Inj) 1,000 ml @ 30 mls/hr Q24H IV 09/12/16 06:00 09/12/16 09:05 Urinary Catheter: No Vascular Central Line Catheter: No A/P Problem List: (1) Hypokalemia ICD Code: E87.6 Status: Resolved (2) Hypocalcemia ICD Code: E83.51 Status: Resolved (3) Alcohol abuse ICD Code: F10.10 Status: Chronic (4) Suicidal ideation ICD Code: R45.851 Status: Acute (5) Liver cirrhosis ICD Code: K74.60 Status: Acute (6) Pancytopenia ICD Code: D61.818 Status: Acute (7) Iron deficiency anemia ICD Code: D50.9 Status: Acute Assessment and Plan 56 year old male patient with ETOH abuse history, electrolyte imbalance and pancytopenia Hypokalemia: potassium 3.1 replaced with potassium 40 meq PO, 30 meq PO and 20 meq IV mag 1.5 replaced with 2 gram IV 09/09 Resolved. continue to monitor and replace as needed. Hypocalcemia: likely related to ETOH abuse Ca 7.6 sp IV Calcium gluconate replacement Calcium level improving. Continue to monitor and replace as needed. 09/10 K Ca 7.9 - Continue to monitor and replace as needed. 09/11 Corrected Calcium is 9. Continue to monitor and replace as needed. Pancytopenia Thrombocytopenia: Platelets 17 -->19 -->16, no active bleeding, likely chronic secondary to long-standing alcohol abuse. Given down trend will transfuse 1 unit of platelets. 09/10 Platelets today 26 K but still trending down. Consult hematology. 09/11 Appreciate hematology recommendations. 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 Will transfuse 2 units of platelets to a goal of more than 50 k so that EGD and colonoscopy can be performed. Continue to monitor CBC. WBC stable at 2.5. sp transfusion of 2 units of platelets - Ok to perform EGD/Colonoscopy. 09/13 Patient cleared to be discharged from Hematology standpoint. Patient advised to stop alcohol. If the patient discontinues alcohol use then his counts will go up. Anemia: Hemoglobin dropping from 7.2-6.6. Patient sp transfusion of 2 units of PRBC on 09/09/16. Hemoccult negative. GI consulted. Appreciate recommendations. Patient will need EGD and colonoscopy once platelets and hemoglobin stable. 09/11 sp transfusion of 1 unit of PRBC's with appropriate - hemoglobin today 8.4. Iron studies consistent with iron deficiency anemia. 09/13 Sp EGD/colonoscopy - Reported Grade I esophageal varices, gastropathy but no active bleeding Colonoscopy showed a descending colon polyp which was not removed as per GI report. Hemoglobin stable at 9.5. No signs of bleeding, no hematochezia or melena - Discussed with GI PA (Mela Sandoval) Patient cleared to be discharged from GI standpoint. Alcohol Abuse/alcohol withdrawal: Seizure Precautions, CIWA, MVT/Thiamine/ Folate replacement. 09/11 withdrawal improving and almost resolved. 09/13 Withdrawal signs and symptoms resolved. Elevated LFTs Due to etoh abuse/liver cirrhosis US liver reveals Cirrhosis with abdominal ascites, simple hepatic cyst and Splenomegaly, follow-up, GI following. AST trending down - Continue to monitor Suicidal Ideation: Seen by psychiatry Mathias Act lifted. started on trazodone 100 mg QHS Patient with symptoms of depression as per psychiatry but not suicidal ideation. DVT Prophylaxis: SCD/Teds- avoid chemical DVT prophylaxis in light of thrombocytopenia Discharge Planning Pending PT eval - DC today Problem Qualifiers (1) Iron deficiency anemia: Qualified Code: D50.9 - Iron deficiency anemia, unspecified iron deficiency anemia type Terry Perez MD Sep 13, 2016 11:55
[2016-09-13 12:46] VITALS: BP 112/68; PULSE 79; RESP 18; TEMP 98.4; O2SAT 93
[2016-09-13] MEDS ORDERED: FERR325T PO (15:29)
[2016-09-13] MEDS ORDERED: TRAZ50TA12 PO (15:29)
[2016-09-13] MEDS ORDERED: PANT40TA3 PO (15:29)
[2016-09-13] MEDS ORDERED: VITA100T2 PO (15:29)
--- NOTE | 2016-09-13 15:32 | HHI.DCPOC ---
Discharge Care Plan Diagnosis: (1) Hypokalemia (2) Hypocalcemia (3) Alcohol abuse (4) Depression (5) Liver cirrhosis (6) Pancytopenia (7) Iron deficiency anemia (8) Alcohol abuse with alcohol-induced mood disorder Goals to Promote Your Health * To prevent worsening of your condition and complications * To maintain your health at the optimal level Directions to Meet Your Goals Take your medications as prescribed Follow your dietary instruction Follow activity as directed Keep your appointments as scheduled Take your immunizations and boosters as scheduled If your symptoms worsen call your PCP, if no PCP go to Urgent Care Center or Emergency Room Smoking is Dangerous to Your Health. Avoid second hand smoke Call the 24-hour hour crisis hotline for domestic abuse at Terry Perez MD Sep 13, 2016 15:32
--- NOTE | 2016-09-13 16:42 | HHI.DS ---
Discharge Summary Admission Date Sep 07, 2016 at 23:27 Discharge Date: Sep 13, 2016 Admitting Diagnosis hypocalcemia, anemia, suicidality (1) Hypokalemia ICD Code: E87.6 Diagnosis: Principal (2) Hypocalcemia ICD Code: E83.51 Diagnosis: Principal (3) Alcohol abuse ICD Code: F10.10 Diagnosis: Principal (4) Suicidal ideation ICD Code: R45.851 Diagnosis: Principal (5) Liver cirrhosis ICD Code: K74.60 Diagnosis: Principal (6) Pancytopenia ICD Code: D61.818 Diagnosis: Principal (7) Iron deficiency anemia ICD Code: D50.9 Diagnosis: Principal Procedures EGD/Colonoscopy on 09/13/16 - grade 1 esophageal varices and gastropathy observed on EGD. Descending colon polyp which was not removed observed on colonoscopy. Brief History - From Admission This is a 56-year-old male with PMH of Alcohol Abuse, Tobacco Abuse and Cirrhosis who presented to the ER secondary to suicidal ideation for voluntary psychiatric evaluation. Also concerned he is having alcohol withdrawal, however Alcohol 290. On arrival, BP 126/67, HR 116, O2 sat 97% on RA, Afebrile. Hgb 7.1. Platelets 17, no previous labs for comparison, no active bleeding. K+ 3.0. Ca 7.4. S/p replacement in ER. CBC/BMP: 09/13/16 0746 09/13/16 0746 Significant Findings Laboratory Tests Test 09/11/16 09/12/16 09/13/16 07:00 08:57 07:46 White Blood Count 2.5 TH/MM3 2.5 TH/MM3 2.8 TH/MM3 (4.0-11.0) (4.0-11.0) (4.0-11.0) Red Blood Count 3.33 MIL/MM3 3.54 MIL/MM3 3.76 MIL/MM3 (4.50-5.90) (4.50-5.90) (4.50-5.90) Hemoglobin 8.4 GM/DL 9.0 GM/DL 9.5 GM/DL (13.0-17.0) (13.0-17.0) (13.0-17.0) Hematocrit 26.1 % 27.9 % 29.8 % (39.0-51.0) (39.0-51.0) (39.0-51.0) Mean Corpuscular Volume 78.4 FL 79.0 FL 79.5 FL (80.0-100.0) (80.0-100.0) (80.0-100.0) Mean Corpuscular Hemoglobin 25.1 PG 25.5 PG 25.2 PG (27.0-34.0) (27.0-34.0) (27.0-34.0) Red Cell Distribution Width 21.1 % 22.0 % 23.0 % (11.6-17.2) (11.6-17.2) (11.6-17.2) Platelet Count 28 TH/MM3 69 TH/MM3 63 TH/MM3 (150-450) (150-450) (150-450) Monocytes (%) (Auto) 15.6 % 19.3 % (0.0-8.0) (0.0-8.0) Eosinophils (%) (Auto) 4.6 % (0.0-4.0) Neutrophils # (Auto) 1.2 TH/MM3 1.2 TH/MM3 (1.8-7.7) (1.8-7.7) Lymphocytes # (Auto) 0.8 TH/MM3 0.7 TH/MM3 (1.0-4.8) (1.0-4.8) Platelet Estimate LOW (NORMAL) LOW (NORMAL) Target Cells 1+ (NORMAL) 1+ (NORMAL) Prothrombin Time 27.5 SEC 25.3 SEC (9.8-11.6) (9.8-11.6) Blood Urea Nitrogen 4 MG/DL (7-18) 4 MG/DL (7-18) 5 MG/DL (7-18) Calcium Level 7.5 MG/DL 7.5 MG/DL 7.5 MG/DL (8.5-10.1) (8.5-10.1) (8.5-10.1) Total Bilirubin 7.0 MG/DL 5.5 MG/DL 5.0 MG/DL (0.2-1.0) (0.2-1.0) (0.2-1.0) Aspartate Amino Transf 78 U/L (15-37) 70 U/L (15-37) 68 U/L (15-37) (AST/SGOT) Alkaline Phosphatase 123 U/L (45-117) Total Protein 6.2 GM/DL 6.2 GM/DL 6.3 GM/DL (6.4-8.2) (6.4-8.2) (6.4-8.2) Albumin 2.1 GM/DL 2.1 GM/DL 2.1 GM/DL (3.4-5.0) (3.4-5.0) (3.4-5.0) Vitamin B12 Level 1875 PG/ML (193-986) Folate GREATER THAN 20.0 NG/ML (3.1-17.5) Basophilic Stippling FAINT (NORMAL) Mean Corpuscular Hemoglobin 31.7 % Concent (32.0-36.0) Random Glucose 73 MG/DL (74-106) Imaging Last Impressions Liver Ultrasound 09/08/16 0000 Signed Impressions: Service Date/Time: Thursday, September 08, 2016 15:07 - CONCLUSION: 1. Cirrhosis with abdominal ascites. 2. Simple hepatic cyst. 3. Splenomegaly. Mo Collins MD PE at Discharge GENERAL: Middle-aged white male in no acute distress. Skin: (+) jaundice HEENT: PERRLA, EOMI. Mild scleral icterus. No lid lag or facial droop. CARDIOVASCULAR: Regular rate and rhythm. No obvious murmurs to auscultation. No chest tenderness to palpation. RESPIRATORY: No obvious rhonchi or wheezing. Clear to auscultation. Breath sounds equal bilaterally. GASTROINTESTINAL: Abdomen soft, non-tender, nondistended. BS normal. MUSCULOSKELETAL: Extremities without clubbing, cyanosis, or edema. No obvious deformities. NEUROLOGICAL: Awake, alert and oriented x4. No focal neurologic deficits. Moving both upper and lower extremities spontaneously. no tremors noted. Hospital Course 6 year old male patient with ETOH abuse history, electrolyte imbalance and pancytopenia Hypokalemia: potassium 3.1 replaced with potassium 40 meq PO, 30 meq PO and 20 meq IV mag 1.5 replaced with 2 gram IV 09/09 Resolved. continue to monitor and replace as needed. Hypocalcemia: likely related to ETOH abuse Ca 7.6 sp IV Calcium gluconate replacement Calcium level was corrected prior to discharge. Calcium level was monitored through patient's hospital stay. Pancytopenia Thrombocytopenia: Platelets 17 -->19 -->16, no active bleeding, likely chronic secondary to long-standing alcohol abuse. Given down trend will transfuse 1 unit of platelets. Hematology was consulted. As per hematology pancytopenia due to hypersplenism and direct toxic effect of alcohol in the bone marrow. Patient status post fusion of the units of platelets to a goal more than 50 K. After platelets reached 50 K the patient was able to undergo EGD and colonoscopy. The patient was cleared for discharge from hematology standpoint. Patient was strongly advised to stop alcohol. Anemia: Hemoglobin dropping from 7.2-6.6. Patient sp transfusion of 2 units of PRBC on 09/09/16. Hemoccult negative. GI consulted. Patient underwent EGD and colonoscopy. Reported Grade I esophageal varices, gastropathy but no active bleeding Colonoscopy showed a descending colon polyp which was not removed as per GI report. Hemoglobin remained stable after EGD and colonoscopy. No further signs of active bleeding or shown. The patient was cleared to be discharged by GI. Alcohol Abuse/alcohol withdrawal: Seizure Precautions, CIWA, MVT/Thiamine/ Folate replacement. Patient showed some signs of withdrawal. Treated with CIWA protocol , thiamine and folate replacement.. Elevated LFTs Due to etoh abuse/liver cirrhosis US liver reveals Cirrhosis with abdominal ascites, simple hepatic cyst and Splenomegaly, follow-up, GI following. AST trending down - Continue to monitor Suicidal Ideation: Seen by psychiatry Mathias Act lifted. started on trazodone 100 mg QHS Patient with symptoms of depression as per psychiatry but not suicidal ideation. DVT Prophylaxis: SCD/Teds- avoid chemical DVT prophylaxis in light of thrombocytopenia Pt Condition on Discharge: Stable Discharge Disposition: Discharge Home Discharge Time: <= 30 minutes Discharge Instructions DIET: Follow Instructions for: Heart Healthy Diet Activities you can perform: Regular-No Restrictions Follow up Referrals: Gastroenterology - 2 Weeks @ [facility] PCP Follow-up - 1 Week New Medications: Ferrous Sulfate (Ferrous Sulfate) 325 Mg Tab 325 MG PO TID anemia #90 TAB Pantoprazole (Pantoprazole) 40 Mg Tab 40 MG PO DAILY gi protection #14 TAB Thiamine (Vitamin B-1) 100 Mg Tab 100 MG PO DAILY etoh abuse #30 TAB Trazodone (Trazodone) 50 Mg Tab 100 MG PO HS Depression Control #30 TAB Continued Medications: Furosemide (Lasix) 20 Mg Tab Unknown Dose PO DAILY #30 Ref 0 TAB Discontinued Medications: Lactulose Liq (Lactulose Liq) 10 Gm/15 Ml Soln 30 ML PO Q6H PRN BLOATING Ref 0 ML Pantoprazole (Pantoprazole) 20 Mg Tab 20 MG PO DAILY Reflux #30 Ref 0 TAB Terry Perez MD Sep 13, 2016 16:42
== END 2016-09-13 18:57 | disposition home or self-care (01) | DRG 812 ==
LOC: NEPA 19:01 → NEDA 23:27 → NEPFCDU 09-08 02:07 → N05B 09-09 21:16
PROVIDERS: ADMIT Internal Medicine; ATTEND Internal Medicine
PROC: 30233R1 Transfusion of Nonautologous Platelets into Peripheral Vein, Percutaneous Approach (ICD-10-PCS; 2016-09-09)
PROC: 30233N1 Transfusion of Nonautologous Red Blood Cells into Peripheral Vein, Percutaneous Approach (ICD-10-PCS; 2016-09-09)
PROC: 0DJ08ZZ Inspection of Upper Intestinal Tract, Via Natural or Artificial Opening Endoscopic (ICD-10-PCS; principal; 2016-09-12 13:20)
PROC: 0DJD8ZZ Inspection of Lower Intestinal Tract, Via Natural or Artificial Opening Endoscopic (ICD-10-PCS; 2016-09-12 13:20)
DX: D50.9 Iron deficiency anemia, unspecified (principal); D61.818 Other pancytopenia; D68.4 Acquired coagulation factor deficiency; I85.10 Secondary esophageal varices without bleeding; K76.6 Portal hypertension; E83.51 Hypocalcemia; R45.851 Suicidal ideations; F10.239 Alcohol dependence with withdrawal, unspecified; K70.31 Alcoholic cirrhosis of liver with ascites; F10.229 Alcohol dependence with intoxication, unspecified; F32.9 Major depressive disorder, single episode, unspecified; E87.6 Hypokalemia; F12.90 Cannabis use, unspecified, uncomplicated; Y90.8 Blood alcohol level of 240 mg/100 ml or more; F41.9 Anxiety disorder, unspecified; F17.210 Nicotine dependence, cigarettes, uncomplicated; D73.1 Hypersplenism; K31.89 Other diseases of stomach and duodenum; D12.4 Benign neoplasm of descending colon; K64.8 Other hemorrhoids; K70.11 Alcoholic hepatitis with ascites
CPT/HCPCS: 36430; 76705; 80053; 80320; 82272; 82607; 82728; 82746; 82948; 83036; 83540; 83550; 83735; 84100; 85025; 85027; 85610; 86850; 86900; 86901; 86920; 90732; 93005; 96365; 96375; J0610; J1750; J2060; J2405; J3411; J3475; J3480; J7040; J7050; J7120; P9016; P9035